=== PATIENT | male | born 1935 | race African-American/Black ===

== ENCOUNTER 2017-06-26 14:38 | Inpatient (IN) | payer MEDICARE ==
--- NOTE | 2017-06-26 15:26 | RAD ---
PORTABLE CHEST: Date: 06/26/17 PROVIDED CLINICAL HISTORY: Altered mental status. FINDINGS: Comparison with 07/13/14. Cardiac and mediastinal silhouette is within normal limits. Atherosclerosis involves the aortic arch. Conspicuous chronic obstructive changes are seen. Patchy opacity is present within the right lower l sheyla zone, which may reflect pneumonia. Gradient effect related to sparing of the lung bases with resp ect to the lung apices in terms of emphysematous change could also produce this appearance. No pleura l fluid or pneumothorax is apparent. IMPRESSION: Chronic obstructive change as described above with possible right basilar air space disease. Follow-u p should be considered. POS: MAHNAZ
[2017-06-26 15:31] LABS: #Lymphocytes 0.4 thou/uL (1.20-3.40); #Monocytes 0.4 thou/uL (0.11-0.59); #Neutrophils 2.2 thou/uL (1.40-6.50); %Basophils 0.7 % (0.0-1.0); %Eosinophils 1.5 % (0.0-10.0); %Lymphocytes 13.6 % (21.0-51.0); %Monocytes 11.9 % (0.0-10.0); %Neutrophils 72.2 % (42.0-75.0); Hemoglobin 12.6 g/dL (14.0-18.0); Mean Corpuscular HGB CONC 32.8 g/dL (32.0-36.0); Mean Corpuscular Hemoglobin 33.5 pg (27.0-31.0); Mean Platelet Volume 7.3 fL (7.4-10.4); Platelet Count 176 thou/uL (130-400); RBC Distribution Width 12.1 % (11.5-14.5); Red Blood Cell (RBC) Count 3.75 mill/uL (4.70-6.10); White Blood Cell (WBC) Count 3.1 thou/uL (4.8-10.8)
--- NOTE | 2017-06-26 15:33 | CT ---
CT BRAIN: Date: 06/26/17 PROVIDED CLINICAL HISTORY: Altered mental status. FINDINGS: The ventricular system appears normal in size and morphology. There is no evidence for intracranial h emorrhage or mass effect. Circumscribed near fluid density structure involving the left occipital sca lp/upper neck region posterior likely reflects sebaceous cyst. Extracranial soft tissues and osseous structures appear otherwise unremarkable. IMPRESSION: No evidence for intracranial hemorrhage or mass effect. POS: MAHNAZ
[2017-06-26 15:43] LABS: Anion Gap 12 mmol/L (10-20); BUN (Urea Nitrogen) 42 mg/dL (8.4-25.7); Calc. Creatinine Clearance 0 mL/min (70-130); Carbon Dioxide 28 mmol/L (23-31); Chloride 106 mmol/L (98-107); Estimated GFR-MDRD 16; Glucose 115 mg/dL (83-110); Potassium 4.5 mmol/L (3.5-5.1); Sodium 141 mmol/L (136-145)
[2017-06-26 15:55] LABS: CKMB 3.6 ng/mL (0-6.6); Troponin I 0.049 ng/mL (< 0.028)
[2017-06-26] MEDS ORDERED: Azithromycin 500 MG VIAL ONE (16:01)
[2017-06-26 16:13] LABS: Bilirubin Negative (Negative); Blood, Urine Negative (Negative); Clarity CLEAR (Clear); Glucose, Urine (Dipstick) Negative (Negative); Leukocyte Small (Negative); Nitrite Negative (Negative); Protein, Urine (Dipstick) 300 mg/dL (Neg-Trace); Specific Gravity, Urine 1.018 (1.002-1.036); Urobilinogen 0.2 mg/dL (0.2-1.0); pH, Urine 5.5 (5.0-9.0)
[2017-06-26 16:15] LABS: Bacteria/HPF None Seen HPF (None Seen); Hyaline Casts/LPF 0-3 HYALINE CAST LPF (0-3 Hyaline); Squamous Epithelial 0-3 HPF (0-3); WBC/HPF 21-50 HPF (0-3)
--- NOTE | 2017-06-26 18:31 | HP ---
DATE OF ADMISSION: 06/26/2017 CHIEF COMPLAINT: Shortness of breath. 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 The patient was in his usual state of health, living on his own taken care o f by his sisters who live close by. One of his sisters has tried to check on him this afternoon arou nd 1:00 and she found the patient was poorly responsive and was acutely short of breath, so she immed iately called the EMS and he was saturating on 82%. So, this patient was brought to the ER for furth er evaluation. When patient arrived in the ER, he remained very confused and unable to give much his tory. Most of the history is obtained from the patient's family at the bedside. The patient had no history of recent cough, but recently he has been having some hypoxia, so they went to their primary care physician's office, Dr. Hernandez who suggested the patient to be seen by Pulmonology in later time. The patient was also noted to have worsening fluid overload in his lower extremities. The patient was supposed to be seen by Cardiology also. The patient was seen today at the ER. He was drowsy and lethargic. Denies having any chest pain, no nausea, no vomiting, no diarrhea, no constipation. PAST MEDICAL HISTORY: 1. COPD. 2. Hypertension. 3. Coronary artery disease. 4. Chronic kidney disease stage 3. PAST SURGICAL HISTORY: Stent placed by Dr. Zeng 5 years ago. SOCIAL HISTORY: The patient is a nonsmoker. Smokes half pack a day. No history of alcohol, no hist ory of illicit drug use. FAMILY HISTORY: Significant for coronary artery disease in her father. Otherwise, it is noncontribu tory at this time for elderly age of patient. ALLERGIES: No known drug allergies. REVIEW OF SYSTEMS: All 12 systems are reviewed with the patient thoroughly and found to be negative at this time. The following complete review of systems was negative, unless otherwise mentioned in t he HPI or below: Constitutional: Weight loss or gain, sense of well-being, ability to conduct usual activities, exerc ise tolerance. Skin/Breast: Rash, itching, changes in hair growth or loss, nail changes, breast lumps, tenderness, swelling, nipple discharge. Eyes: Vision, double vision, tearing, blind spots, pain. ENT/Mouth: Headaches (location, time of onset, duration, precipitating factors), vertigo, lightheade dness, injury. Vision, double vision, tearing, blind spots, pain, nose bleeding, colds, obstruction, discharge, dental difficulties, gingival bleeding, dentures, neck stiffness, pain, tenderness, masses in thyroid or other areas Cardiovascular: Precordial pain, substernal distress, palpitations, syncope, dyspnea on exertion, or thopnea, nocturnal paroxysmal dyspnea, edema, cyanosis, hypertension, heart murmurs, varicosities, ph lebitis, claudication. Respiratory: Pain, shortness of breath, wheezing, stridor, cough, hemoptysis, fever or night sweats Gastrointestinal: Poor appetite, dysphagia, indigestion, abdominal pain, heartburn, eructation, naus ea, vomiting, hematemesis, jaundice, constipation, or diarrhea, abnormal stools (erick-colored, tarry, bloody, greasy, foul smelling), flatulence, hemorrhoids, recent changes in bowel habits. Genitourinary: Urgency, frequency, dysuria, nocturia, hematuria, polyuria, oliguria, unusual (or daniel nge in) color of urine, stones, hesitancy, change in size of stream, dribbling, acute retention or in continence, libido, potency. Musculoskeletal: Pain, swelling, redness or heat of muscles or joints, limitation, of motion, muscul ar weakness, atrophy, cramps. Neurologic/Psychiatric: Convulsions, paralyses, tremor, incoordination, paraesthesias, difficulties with memory of speech, sensory or motor disturbances, or muscular coordination (ataxia, tremor), emot ional problems, anxiety, depression, previous psychiatric care, unusual perceptions, hallucinations. Allergy/Immunologic: Skin rash, anemia, bleeding tendency, polydipsia, polyuria, intolerance to heat or cold. HOME MEDICATIONS: 1. Amlodipine 10 mg p.o. daily. 2. Aspirin 81 mg p.o. daily. 3. Plavix 75 mg p.o. daily. 4. Esomeprazole 40 mg p.o. daily. 5. Hydralazine 25 mg p.o. t.i.d. 6. Metoprolol 25 mg p.o. daily. 7. Prednisone 10 mg p.o. daily. PHYSICAL EXAMINATION: VITAL SIGNS: Blood pressure 190/88, heart rate is 80, saturation is 88% on 2 liters. GENERAL: The patient is moderately built and moderately nourished. He does not appears to be in acu te distress at this time. He is weak and lethargic. HEENT: Atraumatic, normocephalic. PERRLA. Extraocular muscles were intact. Oral mucosa is pink an d moist. CARDIOVASCULAR: S1, S2 normal. No murmurs, rubs or gallops. LUNGS: Bilateral air entry was equal. Crackles were noted in the lower bases, right lung showed mai dence of fine crackles on inspiration. ABDOMEN: Soft and nontender, no guarding, no rebound tenderness. Bowel sounds are normal. MUSCULOSKELETAL: Patient has pedal edema up to the knees. 2+ pedal edema more in ankles pitting typ e. No calf tenderness, no joint tenderness, no joint swelling. SKIN: No cyanosis. No erythema. Has a very dry skin with a flaky skin on the lower extremities. 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 No focal deficits were noted. PSYCHIATRIC: No signs of suicidal ideation. No signs of arely. No signs of agitation. LYMPHADENOPATHY: No evidence of any generalized lymph nodes noted. NECK: No thyromegaly. No JVD was noted. LABORATORY DATA: Sodium 141, potassium 4.5, chloride 106, bicarbonate 28, BUN 42, creatinine 4.33, b lood sugar 115, troponin 0.049. BNP is 927. ASSESSMENT AND PLAN: 1. Acute hypoxic respiratory failure. 2. Acute right lung pneumonia. 3. Acute kidney injury on chronic kidney disease. 4. Joe-VC-iesepfhpw myocardial infarction. 5. Possible congestive heart failure, likely right heart failure. 6. Acute urinary tract infection. 7. History of coronary artery disease status post stents. 8. Uncontrolled hypertension. 9. Acute encephalopathy. PLAN: 1. Plan is to continue the patient on the oxygen at this time and we will start the patient on IV an tibiotics with Rocephin and azithromycin to cover community-acquired pneumonia. Patient has right rosalina ng infiltrate, likely it looks like aspiration type, but patient does not have any cough or any high grade fevers at this time. We will do the speech evaluation and continue with DuoNebs and albuterol neb treatments. Plan to consult Dr. Phelps who the patient sees. Patient does not have any acute res piratory distress at this time. 2. Patient has evidence of worsening renal functions. Creatinine is 4.3. Baseline creatinine is no t known at this time. Plan to consult Dr. Khan for further evaluation of his renal functions. I will continue the patient on fluids at 50 mL an hour because the patient has elevated BNP with a history of CHF and we will also do 2D echo to look for any evidence of wall motion abnormality. 3. The patient has elevated troponins. We will continue the patient on aspirin and beta yevgeniy and we will closely monitor with echo and we will consult Cardiology. 4. Patient has evidence of urinary tract infection which could be contributing to his encephalopathy , up on antibiotics and should cover most of the antibiotics. We will wait for the urine cultures. 5. Patient has poorly controlled blood pressures. We will restart his home medications and optimize his blood pressure medications to keep the blood pressures less than 130/80. 6. DVT prophylaxis, Lovenox 30 mg subcutaneously daily, renally dosed. I spent 75 minutes with this patient. Of this, one hour is critical care time.
[2017-06-26] MEDS ORDERED: Ondansetron ODT 4 MG TAB PO PRN (21:21)
[2017-06-26] MEDS ORDERED: Albuterol Sulfate 2.5 mg/3 ml Neb NEB PRN (21:21)
[2017-06-26] MEDS ORDERED: Ondansetron HCl/PF 4 MG/2 ML Vial IVP PRN (21:21)
[2017-06-26] MEDS ORDERED: Guaifenesin DM 100-10/5 ML UDCUP PO PRN (21:21)
[2017-06-26] MEDS ORDERED: HYDROcodone/Acetaminophen 5/325 mg Tablet PO PRN (21:21)
[2017-06-26] MEDS: hydrALAZINE 25 MG TAB PO SCH (21:27)
[2017-06-26] MEDS ORDERED: Amlodipine 10 MG TAB PO SCH (21:30)
[2017-06-26] MEDS ORDERED: Famotidine/PF 20 mg/2ml Vial SLOW IVP SCH (21:45)
[2017-06-26] MEDS ORDERED: Famotidine 40 MG/4 ML VIAL SLOW IVP SCH (21:45)
[2017-06-26] MEDS ORDERED: Docusate 100 MG CAP PO SCH (21:45)
[2017-06-26] MEDS: Sodium Chloride 0.9% 1,000 ML IV SCH (21:58)
[2017-06-26 22:36] VITALS: BMI 18.4
[2017-06-26] MEDS ORDERED: cloNIDine 0.1 MG TAB PO SCH (23:30)
[2017-06-27 05:42] LABS: #Lymphocytes 0.4 thou/uL (1.20-3.40); #Monocytes 0.4 thou/uL (0.11-0.59); #Neutrophils 2.2 thou/uL (1.40-6.50); %Basophils 0.8 % (0.0-1.0); %Eosinophils 1.1 % (0.0-10.0); %Lymphocytes 14.6 % (21.0-51.0); %Monocytes 11.5 % (0.0-10.0); Hemoglobin 11.7 g/dL (14.0-18.0); Mean Corpuscular HGB CONC 32.5 g/dL (32.0-36.0); Mean Corpuscular Hemoglobin 32.6 pg (27.0-31.0); Mean Platelet Volume 7.4 fL (7.4-10.4); Platelet Count 175 thou/uL (130-400)
[2017-06-27 05:56] LABS: Anion Gap 9 mmol/L (10-20); BUN (Urea Nitrogen) 41 mg/dL (8.4-25.7); Calc. Creatinine Clearance 14 mL/min (70-130); Calcium 8.9 mg/dL (7.8-10.44); Carbon Dioxide 29 mmol/L (23-31); Chloride 105 mmol/L (98-107); Estimated GFR-MDRD 18; Glucose 82 mg/dL (83-110); Sodium 139 mmol/L (136-145)
[2017-06-27] MEDS ORDERED: Clopidogrel Bisulfate 75 MG TAB PO SCH (09:00)
[2017-06-27] MEDS ORDERED: FLU VACC TS2017-18 (>65YR) 0.5 ML SYRINGE IM ONE (09:00)
[2017-06-27] MEDS ORDERED: Prevnar 13-Val Conj/PF 0.5 ML SYRINGE IM ONE (09:00)
[2017-06-27] MEDS ORDERED: Enoxaparin Sodium 30 MG/0.3 ML SYRINGE SC SCH (09:00)
[2017-06-27] MEDS: Aspirin 81 mg Enteric Coated Tablet PO SCH (10:44)
[2017-06-27] MEDS: Amlodipine 10 MG TAB PO SCH (10:44)
[2017-06-27] MEDS: predniSONE 20 MG TAB PO SCH (10:45)
[2017-06-27] MEDS: Docusate 100 MG CAP PO SCH ×2 (10:45→20:55)
[2017-06-27] MEDS: hydrALAZINE 25 MG TAB PO SCH ×3 (10:45→20:56)
--- NOTE | 2017-06-27 14:17 | PDOC.PN ---
- Subjective Encounter Start Date: 06/27/17 Encounter Start Time: 13:00 Subjective: pt up in bed feels much better today - Objective Resuscitation Status: Resuscitation Status FULL:Full Resuscitation Vital Signs & Weight: Vital Signs (12 hours) Temp Pulse Resp BP Pulse Ox 06/27/17 12:45 98.4 F 74 16 181/76 H 96 06/27/17 10:50 73 18 94 L 06/27/17 08:00 98.5 F 73 18 88 L 06/27/17 07:46 72 18 92 L 06/27/17 07:19 98.5 F 71 24 H 163/87 H 94 L 06/27/17 03:49 98.8 F 80 87 H 177/86 H 96 06/27/17 02:31 67 18 93 L Weight Admit Weight 139 lb 15.888 oz Weight 139 lb 15.888 oz I&O: 06/26/17 06/27/17 06/28/17 06:59 06:59 06:59 Intake Total 1270 Balance 1270 Result Diagrams: 06/27/17 05:16 06/27/17 05:16 Phys Exam - Physical Examination HEENT: PERRLA, moist MMs Neck: no nodes, no JVD Respiratory: wheezing present diminished breath sounds Cardiovascular: RRR, no significant murmur Gastrointestinal: soft, non-tender Dx/Plan - Plan * . 1) acute hypoxic resp failure 2) copd 3) diastolic chf 4) ckd stage 4 plan: pna vs copd exab, influenza negative, pt uses home oxygen at night and sometimes during the day. continue duonebs will also continue steroids. continue abx. swallow eval done, recommended mechanical soft with thin liquids no straw. continue home bp meds, bp still not controlled. creatinine is stable, pt has multiple medical problems will consult palliative. Review of Systems - Review of Systems ENT: negative: Ear Pain, Ear Discharge, Nose Pain, Nose Discharge, Nose Congestion, Mouth Pain, Mouth Swelling, Throat Pain, Throat Swelling, Other Respiratory: negative: Cough, Dry, Shortness of Breath, Hemoptysis, SOB with Excertion, Pleuritic Pain, Sputum, Wheezing Cardiovascular: negative: chest pain, palpitations, orthopnea, paroxysmal nocturnal dyspnea, edema, light headedness, other Gastrointestinal: negative: Nausea, Vomiting, Abdominal Pain, Diarrhea, Constipation, Melena, Hematochezia, Other Genitourinary: negative: Dysuria, Frequency, Incontinence, Hematuria, Retention , Other - Medications/Allergies Allergies/Adverse Reactions: Allergies Allergy/AdvReac Type Severity Reaction Status Date / Time No Known Allergies Allergy Unverified 07/07/14 14:00 Medications: Current Medications Acetaminophen (Tylenol) 650 mg PO Q4H PRN PRN Reason: Headache/Fever or Pain Hydrocodone Bitart/Acetaminophen ([place] 5/325) 1 tab PO Q4H PRN PRN Reason: Moderate Pain (4-6) Albuterol Sulfate (Ventolin) 2.5 mg NEB Q2H PRN PRN Reason: Wheezing Albuterol/Ipratropium (Duoneb) 3 ml NEB [id number] [facility] Last Admin: 06/27/17 10:50 Dose: 3 ml Amlodipine Besylate (Norvasc) 10 mg PO DAILY [facility] Last Admin: 06/27/17 10:44 Dose: 10 mg Aspirin (Ecotrin) 81 mg PO DAILY [facility] Last Admin: 06/27/17 10:44 Dose: 81 mg Clopidogrel Bisulfate (Plavix) 75 mg PO DAILY [facility] Last Admin: 06/27/17 10:45 Dose: 75 mg Docusate Sodium (Colace) 100 mg PO BID [facility] Last Admin: 06/27/17 10:45 Dose: 100 mg Famotidine (Pepcid) 20 mg SLOW IVP QPM [facility] Guaifenesin/Dextromethorphan (Robitussin Dm) 15 ml PO Q4H PRN PRN Reason: Cough Heparin Sodium (Porcine) (Heparin) 5,000 units SC TID [facility] Hydralazine HCl (Apresoline) 25 mg PO TID [facility] Last Admin: 06/27/17 10:45 Dose: 25 mg Hydralazine HCl (Apresoline) 10 mg SLOW IVP Q6H PRN PRN Reason: SBP > 180 Azithromycin 500 mg/ Sodium (Chloride) 250 mls @ 250 mls/hr IVPB Q24HR [facility] Ceftriaxone Sodium 1 gm/ (Sterile Water) 10 mls @ 120 mls/hr SLOW IVP Q24HR [facility] Sodium Chloride (Normal Saline 0.9%) 1,000 mls @ 50 mls/hr IV .Q20H [facility] Last Admin: 06/26/17 21:58 Dose: 1,000 mls Metoprolol Succinate (Toprol Xl) 25 mg PO DAILY [facility] Last Admin: 06/27/17 10:45 Dose: 25 mg Ondansetron HCl (Zofran Odt) 4 mg PO Q6H PRN PRN Reason: Nausea/Vomiting Ondansetron HCl (Zofran) 4 mg IVP Q6H PRN PRN Reason: Nausea/Vomiting Prednisone (Prednisone) 10 mg PO QAM-WM [facility] Last Admin: 06/27/17 10:45 Dose: 10 mg Sodium Chloride (Flush - Normal Saline) 10 ml IVF Q12HR [facility] Sodium Chloride (Flush - Normal Saline) 10 ml IVF PRN PRN PRN Reason: Saline Flush
[2017-06-27] MEDS: Heparin 5,000 UNITS/ML VIAL SC SCH ×3 (14:49→20:55)
[2017-06-27] MEDS: cefTRIAXone\\ROCEPHIN 1 GM in Sterile Water 10 ML SLOW IVP SCH (16:24)
[2017-06-27] MEDS: Azithromycin 500 MG in Sodium Chloride 0.9% 250 ML 250 ML IVPB SCH (16:24)
[2017-06-27] MEDS: Sodium Chloride 0.9% 1,000 ML IV SCH ×2 (16:30→20:52)
--- NOTE | 2017-06-27 20:34 | CON ---
DATE OF CONSULTATION: 06/27/2017 CARDIOLOGY CONSULTATION PRIMARY LEAD ASSISTANT MANAGER: Alf Zeng M.D. REASON FOR CONSULTATION: Shortness of breath, coronary artery disease. HISTORY OF PRESENT ILLNESS: Mr. Fabio De La Rosa is a delightful 81-year-old gentleman, who was brought to the hospital yesterday evening noticing having decreased responsiveness and appear short of breath and EMS was called. Saturation was 82%. He was brought to the emergency room. The patient was booker wsy and lethargic, also had renal failure. He has been received some fluid. He is more awake and al ert now. PAST MEDICAL HISTORY: COPD, hypertension, coronary artery disease with previous stent implantation i n the left anterior descending artery [place] [address] Zeng. PAST SURGICAL HISTORY: Previous stent implantation. SOCIAL HISTORY: It is listed in the chart he smokes half pack of cigarettes a day. FAMILY HISTORY: Significant for coronary artery disease in the father. ALLERGIES: None known. REVIEW OF SYSTEMS: Not very accurate as the patient really cannot answer the questions adequately. He is having no chest pain, pressure, heaviness or squeezing. He is not short of breath now. MEDICATIONS: Prior to admission at home: 1. Metoprolol 25 mg daily. 2. Iron. 3. Atorvastatin. 4. Aspirin. 5. Amlodipine. 6. Hydralazine. 7. Plavix. 8. Tramadol. PHYSICAL EXAMINATION: GENERAL: An underweight appearing elderly gentleman, looks very frail, 6 feet tall and 139 pounds. VITAL SIGNS: Blood pressure 148/79, pulse 90. HEENT: Eyes: Sclerae nonicteric. Mouth: Mucous membranes are moist. NECK: Supple, no lymphadenopathy. CARDIAC: Normal S1, normal S2. I do not hear murmur, rub or gallop. ABDOMEN: Soft, nontender, no hepatosplenomegaly. EXTREMITIES: Warm, dry, no clubbing or cyanosis. There is no edema. SKIN: The skin; however, is peeling and he does look dry. LABORATORY AND X-RAY FINDINGS: EKG: Sinus rhythm, left ventricular hypertrophy with repolarization changes, premature atrial contractions. There is a lot of baseline artifact on the EKGs. The comput er read this is atrial fibrillation, but clearly some of it is sinus rhythm with a lot of baseline ar tifact. Echocardiogram showed severe left ventricular hypertrophy, normal left ventricular ejection fraction, ejection fraction 60% to 65%, evidence of diastolic dysfunction, and severely elevated pulm onary artery pressure at 74 mmHg systolic. There is a moderate pericardial effusion, but no tamponad e. ASSESSMENT: 1. Congestive heart failure, diastolic. 2. Renal failure, now with a creatinine of 3.8, which is better than the initial of 4.3. 3. History of coronary artery disease. PLAN: 1. Recheck base met in the morning. 2. We will increase fluid intravenously for now. 3. We will stop Plavix. At this point, he is 12 years out from stent implantation. 4. Repeat EKG tomorrow. We may need to consider moving to telemetry if it is unclear whether he is having fibrillation.
[2017-06-27] MEDS: Famotidine 40 MG/4 ML VIAL SLOW IVP SCH (20:55)
[2017-06-27] MEDS: Atorvastatin Calcium 20 MG TAB PO SCH (20:55)
[2017-06-27] MEDS: Acetaminophen 325 MG TAB PO PRN (20:56)
--- NOTE | 2017-06-27 21:21 | CON ---
DATE OF SERVICE: 06/27/2017 RENAL MEDICINE HISTORY OF PRESENT ILLNESS: Mr. De La Rosa is an 81-year-old black male with known history of chronic narinder al failure from hypertensive nephropathy and was admitted for shortness of breath. He initially pres ented with some mental status change. The ER was noted to be saturating at 82%. It was felt that th e hypoxemia may be contributing to his mental status change. We are now being consulted for his acut e kidney injury on top of his chronic renal failure. The last time I saw this patient was back in [facility] and at that time his creatinine was about 4.28 mg percent. He was taking NSAIDs at that time a nd he was advised to discontinue all NSAIDs. This morning, the patient is slightly improved with reg ards to his mentation. He is still somewhat lethargic. We are here for further elevation of this renal dysfunction. Recent workup shows that he has a normal ejection fraction, but does have evidence of restrictive hea rt. He has a thickened heart mass. Chest x-ray is not suggestive of overt CHF. REVIEW OF SYSTEMS: Positive for confusion. Positive for chronic shortness of breath, no nausea, no vomiting. Decreased appetite, decreased energy level, no syncopal episode, no productive cough, no f ever or chills. No abdominal pain. No hematochezia, no melena, no hematemesis, no diplopia, no sore throat, no gross hematuria, no dysuria, no urinary frequency. MEDICATIONS: [place] 5/325 q.4h, DuoNeb q.4 hours, Norvasc 10 mg daily, Ecotrin 81 mg daily, Lipitor 2 0 mg at bedtime, azithromycin 250 mg every day, ceftriaxone 1 gram daily, Colace 100 mg p.o. b.i.d., Pepcid 20 mg IV daily, heparin 5000 units subcu t.i.d., metoprolol succinate 25 mg every day, prednis one 10 mg q.a.m., normal saline running at 80 mL per hour. PAST MEDICAL HISTORY: 1. COPD. 2. Longstanding hypertension. 3. Chronic renal failure secondary to a presumed hypertensive nephropathy. 4. History of restrictive lung disease. 5. Coronary artery disease. 6. BPH. 7. Hyperlipidemia. 8. Status post pneumonia. PAST SURGICAL HISTORY: 1. Status post colonoscopy. 2. Status post cardiac catheterization. 3. Status post coronary stent placement. SOCIAL HISTORY: Patient is single, no children, lives in [place]. Smoked for 60 years, one pack a day , currently minimal cigarette, alcohol none. No IV drug abuse. He lives alone. Education 7th grade . 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 No blood transfusion. FAMILY HISTORY: Positive family history of ESRD. ALLERGIES: None. TRAUMA: None. IMMUNIZATIONS: Not up to date. HOSPITALIZATIONS: Please see past medical history. PHYSICAL EXAMINATION: VITAL SIGNS: Blood pressure is 148/79, heart rate 90, respiratory rate 16, temperature 97.3 points, pulse ox 92%. GENERAL: He is awake, but not alert, lethargic, drowsy, somewhat somnolent, not in distress. SKIN: Decreased turgor. HEENT: Pinkish conjunctivae, anicteric sclerae. NECK: No neck mass, no carotid bruits, no JVD. CHEST: No deformities. LUNGS: Decreased breath sounds. HEART: Normal sinus rhythm. No murmur, no gallops or rubs. ABDOMEN: Globular, soft, nontender. EXTREMITIES: No edema, no deformities. LABORATORY DATA: Of 06/27/2017, white count 3, hemoglobin 11.7, sodium 139, potassium 4, chloride 10 5, carbon dioxide 29, BUN 41, creatinine 3.85. On 06/26/2017, BUN is 42, creatinine 4.33, calcium is noted at 8.9. On 08/27/2016, creatinine 3.52. Chest x-ray of 06/26/2017 shows COPD changes with a possible right basilar infiltrate, ? pneumonia. Cardiac echo, normal EF, normal ejection fraction of 60%-65%. There is severe concentric left ventri cular hypertrophy. ASSESSMENT AND PLAN: 1. Acute kidney injury on top of her chronic renal failure, consider a superimposed prerenal azotemi a. Agree with gentle volume repletion. There is already a slight improvement with the renal functio n with gentle volume repletion. I will continue current IV fluid as is. There is no indication for any dialytic intervention with this patient. 2. Shortness of breath, multifactorial. Consider chronic obstructive pulmonary disease exacerbation versus pneumonia. He is empirically being treated with steroids and IV antibiotics. Overall, agree with current management. Recheck base met and CBC in a.m.
[2017-06-28] MEDS: hydrALAZINE 20 MG/ML VIAL SLOW IVP PRN (03:59)
[2017-06-28] MEDS: Sodium Chloride 0.9% 1,000 ML IV SCH (04:01)
[2017-06-28] MEDS ORDERED: hydrALAZINE 25 MG TAB PO SCH (06:30)
[2017-06-28] MEDS: predniSONE 20 MG TAB PO SCH (07:56)
[2017-06-28] MEDS: Amlodipine 10 MG TAB PO SCH (07:57)
[2017-06-28] MEDS: Docusate 100 MG CAP PO SCH ×2 (07:57→21:26)
[2017-06-28] MEDS: Aspirin 81 mg Enteric Coated Tablet PO SCH (07:59)
[2017-06-28] MEDS: Heparin 5,000 UNITS/ML VIAL SC SCH ×3 (07:59→21:26)
[2017-06-28] MEDS ORDERED: Atorvastatin Calcium 20 MG TAB PO SCH (09:00)
[2017-06-28] MEDS ORDERED: Amlodipine 5 MG TAB PO SCH (09:00)
[2017-06-28] MEDS ORDERED: Clopidogrel Bisulfate 75 MG TAB PO SCH (09:00)
--- NOTE | 2017-06-28 09:36 | PQF ---
CLINICAL DOCUMENTATION IMPROVEMENT CLARIFICATION FORM: ICD-10 Updated PLEASE DO AN ADDENDUM TO THE PROGRESS NOTE WITH ANY DOCUMENTATION UPDATES OR ADDITIONS AND CARRY THROUGH TO DC SUMMARY. THANK YOU. DATE: 06/28 ATTN: DR. Isrrael MONTGOMERY Please exercise your independent, professional judgment in responding to the clarification form. Clinical indicators are provided on the bottom of this form for your review. Please check appropriate box(s): DIASTOLIC HEART FAILURE: ACUITY [ ] Acute [x ] Acute on Chronic [ ] Chronic [ ] Other diagnosis [ ] Unable to determine For continuity of documentation, please document condition throughout progress notes and discharge summary. Thank You. CLINICAL INDICATORS - SIGNS / SYMPTOMS / LABS BNP: 927 PHYSICIAN H&P DOCUMENTATION 06/26: ASSESSMENT & PLAN: 5) POSSIBLE CHF, LIKELY RIGHT HEART FAILURE ATTENDING PN 06/27: DX/PLAN: 3) DIASTOLIC CHF CARDIOLOGY CONSULT DOCUMENTATION 06/27: ASSESSMENT: 1) CHF, DIASTOLIC RISKS: HX DIASTOLIC CHF CKD STAGE 3 CAD POORLY CONTROLLED HTN TREATMENTS: ECHO CARDIOLOGY CONSULT THANK YOU! Jennifer (This form is maintained as a part of the permanent medical record) 2015 [employer]. All Rights Reserved [employer]
--- NOTE | 2017-06-28 09:48 | PQF ---
CLINICAL DOCUMENTATION IMPROVEMENT CLARIFICATION FORM: ICD-10 Updated PLEASE DO AN ADDENDUM TO THE PROGRESS NOTE WITH ANY DOCUMENTATION UPDATES OR ADDITIONS AND CARRY THROUGH TO DC SUMMARY. THANK YOU. DATE: 06/28 ATTN: DR. KALINA MONTGOMERY Please exercise your independent, professional judgment in responding to the clarification form. Clinical indicators are provided on the bottom of this form for your review. Please check appropriate box(s): [ x] Aspiration Pneumonia ( possible) [ ] Pneumonia secondary to (specify organism / underlying disease) [ ] Simple Pneumonia (community acquired - nosocomial) [ ] Bronchopneumonia [ ] Pneumonia of unknown etiology [ ] Other diagnosis [ ] Unable to determine For continuity of documentation, please document condition throughout progress notes and discharge summary. Thank You. CLINICAL INDICATORS - SIGNS / SYMPTOMS / LABS PHYSICIAN H&P DOCUMENTATION 06/26: ASSESSMENT/PLAN: 2) ACUTE RIGHT LUNG PNEUMONIA. PLAN: 1) ...WE WILL START PATIENT ON IV ANTIBIOTICS W/ROCEPHIN & AZITHROMYCIN TO COVER COMMUNITY ACQUIRED PNEUMONIA. PT HAS R LUNG INFILTRATE, LIKELY IT LOOKS LIKE ASPIRATION TYPE... ATTENDING PN 06/27: DX/PLAN: PNA VS COPD EXAC, ...CONTINUE ABX, SWALLOW EVAL DONE, RECOMMENDED MECHANICAL SOFT WITH THIN LIQUIDS, NO STRAW CXR 06/26: ...PATCHY OPACITY IS PRESENT WITHIN THE RIGHT LOWER LUNG ZONE, WHICH MAY REFLECT PNEUMONIA RISK FACTORS: CURRENT TOBACCO ABUSE ADVANCED AGE COPD TREATMENTS: IV ANTIBIOTICS (ROCEPHIN & AZITHROMYCIN 06/26 - PRESENT) SUPPLEMENTAL OXYGEN RESPIRATORY TREATMENTS (DUONEB 06/26 - PRESENT) THANK YOU! Jennifer (This form is maintained as a part of the permanent medical record) 2014 [email or web address]. All Rights Reserved [facility]
--- NOTE | 2017-06-28 09:56 | PQF ---
CLINICAL DOCUMENTATION IMPROVEMENT CLARIFICATION FORM: ICD-10 Updated PLEASE DO AN ADDENDUM TO THE PROGRESS NOTE WITH ANY DOCUMENTATION UPDATES OR ADDITIONS AND CARRY THROUGH TO DC SUMMARY. THANK YOU. DATE: 06/28 ATTN: DR. KALINA MONTGOMERY Please exercise your independent, professional judgment in responding to the clarification form. Clinical indicators are provided on the bottom of this form for your review. Please check appropriate box(s) to clarify if the following diagnosis has been ruled in or ruled out: NSTEMI [ ] Ruled in diagnosis [ ] Continue to treat [ ] Resolved [ ] Ruled out diagnosis [ ] Other diagnosis [x ] Unable to determine For continuity of documentation, please document condition throughout progress notes and discharge summary. Thank You. CLINICAL INDICATORS - SIGNS / SYMPTOMS / LABS TROP: 0.049 (06/26) PHYSICIAN H&P DOCUMENTATION 06/26: ASSESSMENT & PLAN: 4) [id number] MYOCARDIAL INFARCTION NO FURTHER MENTION OF NSTEMI RISK FACTORS: CAD CURRENT TOBACCO ABUSE DIASTOLIC CHF TREATMENT: 1 SET OF CARDIAC ENZYMES THANK YOU! Jennifer (This form is maintained as a part of the permanent medical record) 2014 [employer] All Rights Reserved Jennifer Oakes RN, BSN [email or web address] Office: [phone] [id number]
[2017-06-28] MEDS: hydrALAZINE 25 MG TAB PO SCH ×3 (14:13→21:26)
[2017-06-28] MEDS: cefTRIAXone\\ROCEPHIN 1 GM in Sterile Water 10 ML SLOW IVP SCH (15:49)
[2017-06-28] MEDS: Azithromycin 500 MG in Sodium Chloride 0.9% 250 ML 250 ML IVPB SCH (16:52)
--- NOTE | 2017-06-28 18:08 | PRG ---
DATE OF SERVICE: 06/28/2017 HISTORY: Mr. De La Rosa is resting comfortably, no complaints. No chest pain or pressure. PHYSICAL EXAMINATION: VITAL SIGNS: Blood pressure 167/76, pulse 87 and regular. LUNGS: Clear. CARDIAC: Normal S1, normal S2. ASSESSMENT: 1. Coronary artery disease, stable. 2. Pulmonary hypertension. 3. Diastolic heart failure, still somewhat volume depleted, I suspect. 4. Renal function improving, creatinine went from 4.3-3.8. PLAN: 1. Continue antibiotics and gentle hydration. 2. Continue amlodipine. 3. I will be out the next few days. The patient's primary labor utilization superintendent is Dr. Zeng, one of the partners will be covering the next few days.
--- NOTE | 2017-06-28 21:15 | PDOC.PN ---
- Subjective Encounter Start Date: 06/28/17 Encounter Start Time: 09:00 Subjective: pt up in bed no complains - Objective Resuscitation Status: Resuscitation Status FULL:Full Resuscitation Vital Signs & Weight: Vital Signs (12 hours) Temp Pulse Resp BP Pulse Ox 06/28/17 18:42 84 16 94 L 06/28/17 16:54 87 06/28/17 15:46 97.6 F 87 18 167/76 H 92 L 06/28/17 14:13 80 06/28/17 11:32 97.6 F 80 18 178/72 H 89 L Weight Admit Weight 139 lb 15.888 oz Weight 139 lb 15.888 oz I&O: 06/27/17 06/28/17 06/29/17 06:59 06:59 06:59 Intake Total 1270 1200 1312 Output Total 400 750 Balance 1270 800 562 Result Diagrams: 06/29/17 05:19 06/29/17 05:19 Phys Exam - Physical Examination HEENT: PERRLA Neck: no nodes mild rales to bases Gastrointestinal: soft, non-tender Musculoskeletal: no edema Dx/Plan - Plan 1) acute hypoxic resp failure 2) copd 3) diastolic chf 4) ckd stage 4 plan: pna vs copd exab v influenza negative, pt uses home oxygen at night and sometimes during the day. continue duonebs will also continue steroids. continue abx. swallow eval done, recommended mechanical soft with thin liquids no straw. pt has diastolic heart failure and severe pulmonary htn. continue home bp meds, bp still not controlled. creatinine is stable, pt has multiple medical problems will consult palliative. will ask PT to ambulate pt. will be talking with family about pt's code status and possible placement. Review of Systems - Review of Systems ENT: negative: Ear Pain, Ear Discharge, Nose Pain, Nose Discharge, Nose Congestion, Mouth Pain, Mouth Swelling, Throat Pain, Throat Swelling, Other Respiratory: negative: Cough, Dry, Shortness of Breath, Hemoptysis, SOB with Excertion, Pleuritic Pain, Sputum, Wheezing Cardiovascular: negative: chest pain, palpitations, orthopnea, paroxysmal nocturnal dyspnea, edema, light headedness, other - Medications/Allergies Allergies/Adverse Reactions: Allergies Allergy/AdvReac Type Severity Reaction Status Date / Time No Known Allergies Allergy Unverified 07/07/14 14:00 Medications: Current Medications Acetaminophen (Tylenol) 650 mg PO Q4H PRN PRN Reason: Headache/Fever or Pain Last Admin: 06/27/17 20:56 Dose: 650 mg Hydrocodone Bitart/Acetaminophen ([place] 5/325) 1 tab PO Q4H PRN PRN Reason: Moderate Pain (4-6) Albuterol Sulfate (Ventolin) 2.5 mg NEB Q2H PRN PRN Reason: Wheezing Albuterol/Ipratropium (Duoneb) 3 ml NEB Q2GM-MG [facility] Last Admin: 06/29/17 19:14 Dose: 3 ml Aspirin (Ecotrin) 81 mg PO DAILY [facility] Last Admin: 06/29/17 09:14 Dose: 81 mg Atorvastatin Calcium (Lipitor) 20 mg PO HS [facility] Last Admin: 06/29/17 21:14 Dose: 20 mg Docusate Sodium (Colace) 100 mg PO BID [facility] Last Admin: 06/29/17 21:14 Dose: 100 mg Famotidine (Pepcid) 20 mg SLOW IVP QPM [facility] Last Admin: 06/29/17 21:15 Dose: 20 mg Guaifenesin/Dextromethorphan (Robitussin Dm) 15 ml PO Q4H PRN PRN Reason: Cough Heparin Sodium (Porcine) (Heparin) 5,000 units SC TID [facility] Last Admin: 06/29/17 21:15 Dose: 5,000 units Hydralazine HCl (Apresoline) 10 mg SLOW IVP Q6H PRN PRN Reason: SBP > 180 Last Admin: 06/29/17 03:23 Dose: 10 mg Hydralazine HCl (Apresoline) 75 mg PO TID [facility] Last Admin: 06/29/17 21:15 Dose: 75 mg Azithromycin 500 mg/ Sodium (Chloride) 250 mls @ 250 mls/hr IVPB Q24HR [facility] Last Admin: 06/29/17 17:52 Dose: 250 mls Ceftriaxone Sodium 1 gm/ (Sterile Water) 10 mls @ 120 mls/hr SLOW IVP Q24HR [facility] Last Admin: 06/29/17 16:11 Dose: 10 mls Metoprolol Tartrate (Lopressor) 100 mg PO BID [facility] Last Admin: 06/29/17 21:15 Dose: 100 mg Nifedipine (Adalat) 10 mg PO TID [facility] Last Admin: 06/29/17 21:15 Dose: 10 mg Ondansetron HCl (Zofran Odt) 4 mg PO Q6H PRN PRN Reason: Nausea/Vomiting Ondansetron HCl (Zofran) 4 mg IVP Q6H PRN PRN Reason: Nausea/Vomiting Prednisone (Prednisone) 10 mg PO QAM[facility] Last Admin: 06/29/17 09:13 Dose: 10 mg Sodium Chloride (Flush - Normal Saline) 10 ml IVF Q12HR [facility] Last Admin: 06/29/17 21:16 Dose: 10 ml Sodium Chloride (Flush - Normal Saline) 10 ml IVF PRN PRN PRN Reason: Saline Flush
[2017-06-28] MEDS: Atorvastatin Calcium 20 MG TAB PO SCH (21:26)
[2017-06-28] MEDS: Metoprolol Tartrate 50 MG TAB PO SCH (21:26)
[2017-06-28] MEDS: Famotidine 40 MG/4 ML VIAL SLOW IVP SCH (21:27)
[2017-06-29] MEDS: hydrALAZINE 20 MG/ML VIAL SLOW IVP PRN (03:23)
[2017-06-29 06:13] LABS: Hemoglobin 11.2 g/dL (14.0-18.0); Lymphocytes 18 % (21-51); MDiff Complete? YES; Mean Corpuscular Hemoglobin 33.3 pg (27.0-31.0); Mean Platelet Volume 7.8 fL (7.4-10.4); Monocytes 13 % (0-10); Neutrophil 69 % (42-75); PLT Morphology Comment Appears Adequate; Platelet Count 184 thou/uL (130-400); RBC Distribution Width 12.2 % (11.5-14.5); Red Blood Cell (RBC) Count 3.37 mill/uL (4.70-6.10); White Blood Cell (WBC) Count 2.3 thou/uL (4.8-10.8)
[2017-06-29 06:19] LABS: Anion Gap 10 mmol/L (10-20); BUN (Urea Nitrogen) 35 mg/dL (8.4-25.7); Calc. Creatinine Clearance 15 mL/min (70-130); Carbon Dioxide 25 mmol/L (23-31); Chloride 108 mmol/L (98-107); Estimated GFR-MDRD 20; Glucose 73 mg/dL (83-110); Potassium 4.3 mmol/L (3.5-5.1); Sodium 139 mmol/L (136-145)
[2017-06-29] MEDS: predniSONE 20 MG TAB PO SCH (09:13)
[2017-06-29] MEDS: Docusate 100 MG CAP PO SCH ×2 (09:13→21:14)
[2017-06-29] MEDS: hydrALAZINE 25 MG TAB PO SCH ×3 (09:13→21:15)
[2017-06-29] MEDS: Amlodipine 10 MG TAB PO SCH (09:13)
[2017-06-29] MEDS: Heparin 5,000 UNITS/ML VIAL SC SCH ×3 (09:14→21:15)
[2017-06-29] MEDS: Aspirin 81 mg Enteric Coated Tablet PO SCH (09:14)
[2017-06-29] MEDS: Metoprolol Tartrate 50 MG TAB PO SCH (09:28)
--- NOTE | 2017-06-29 10:55 | PDOC.PN ---
- Subjective Encounter Start Date: 06/29/17 Encounter Start Time: 11:03 Subjective: pt up in bed no complains -: family at bedside updated and spoke about code status - Objective Resuscitation Status: Resuscitation Status FULL:Full Resuscitation Vital Signs & Weight: Vital Signs (12 hours) Temp Pulse Resp BP BP Pulse Ox 06/29/17 09:13 76 06/29/17 07:59 97.6 F 76 16 181/75 H 93 L 06/29/17 06:36 88 L 06/29/17 06:33 81 20 88 L 06/29/17 03:30 98.1 F 71 18 185/70 H 98 06/29/17 03:23 71 185/70 H 06/29/17 02:53 74 16 95 06/28/17 23:49 98.1 F 69 16 179/77 H 96 Weight Admit Weight 139 lb 15.888 oz Weight 139 lb 15.888 oz I&O: 06/28/17 06/29/17 06/30/17 06:59 06:59 06:59 Intake Total 1200 1552 Output Total 400 1350 Balance 800 202 Result Diagrams: 06/29/17 05:19 06/29/17 05:19 Phys Exam - Physical Examination HEENT: PERRLA, moist MMs Neck: no nodes, no JVD Respiratory: no wheezing, no rales Cardiovascular: RRR, no significant murmur Gastrointestinal: soft, non-tender Musculoskeletal: no edema Dx/Plan - Plan * . 1) acute hypoxic resp failure 2) copd 3) diastolic chf 4) ckd stage 4 plan: pna vs copd exab v influenza negative, pt uses home oxygen at night and sometimes during the day. continue duonebs will also continue steroids. continue abx. swallow eval done, recommended mechanical soft with thin liquids no straw. pt has diastolic heart failure and severe pulmonary htn. continue home bp meds, bp still not controlled. creatinine is stable, pt has multiple medical problems will consult palliative. 06/29 discussed with pt's family about pt's overall medical issues. They will talk with him about code status but pt did say he wants to do what it takes to live. However pt's sister knows his overall medical problems are chronic and his overall outcome will be poor. pt has agreed for rehab. pt's blood pressure is still high. will add procardia and increase metoprolol to 100mg bid and will ask nephro is ok to start pt on FILIPE will walk pt by PT to see if we need to increase his oxygen Review of Systems - Review of Systems Eyes: negative: Pain, Vision Change, Conjunctivae Inflammation, Eyelid Inflammation, Redness, Other ENT: negative: Ear Pain, Ear Discharge, Nose Pain, Nose Discharge, Nose Congestion, Mouth Pain, Mouth Swelling, Throat Pain, Throat Swelling, Other Respiratory: negative: Cough, Dry, Shortness of Breath, Hemoptysis, SOB with Excertion, Pleuritic Pain, Sputum, Wheezing Cardiovascular: negative: chest pain, palpitations, orthopnea, paroxysmal nocturnal dyspnea, edema, light headedness, other - Medications/Allergies Allergies/Adverse Reactions: Allergies Allergy/AdvReac Type Severity Reaction Status Date / Time No Known Allergies Allergy Unverified 07/07/14 14:00 Medications: Current Medications Acetaminophen (Tylenol) 650 mg PO Q4H PRN PRN Reason: Headache/Fever or Pain Last Admin: 06/27/17 20:56 Dose: 650 mg Hydrocodone Bitart/Acetaminophen ([place] 5/325) 1 tab PO Q4H PRN PRN Reason: Moderate Pain (4-6) Albuterol Sulfate (Ventolin) 2.5 mg NEB Q2H PRN PRN Reason: Wheezing Albuterol/Ipratropium (Duoneb) 3 ml NEB [id number] [facility] Last Admin: 06/29/17 06:33 Dose: 3 ml Aspirin (Ecotrin) 81 mg PO DAILY [facility] Last Admin: 06/29/17 09:14 Dose: 81 mg Atorvastatin Calcium (Lipitor) 20 mg PO HS [facility] Last Admin: 06/28/17 21:26 Dose: 20 mg Docusate Sodium (Colace) 100 mg PO BID [facility] Last Admin: 06/29/17 09:13 Dose: 100 mg Famotidine (Pepcid) 20 mg SLOW IVP QPM [facility] Last Admin: 06/28/17 21:27 Dose: 20 mg Guaifenesin/Dextromethorphan (Robitussin Dm) 15 ml PO Q4H PRN PRN Reason: Cough Heparin Sodium (Porcine) (Heparin) 5,000 units SC TID [facility] Last Admin: 06/29/17 09:14 Dose: 5,000 units Hydralazine HCl (Apresoline) 10 mg SLOW IVP Q6H PRN PRN Reason: SBP > 180 Last Admin: 06/29/17 03:23 Dose: 10 mg Hydralazine HCl (Apresoline) 75 mg PO TID [facility] Last Admin: 06/29/17 09:13 Dose: 75 mg Azithromycin 500 mg/ Sodium (Chloride) 250 mls @ 250 mls/hr IVPB Q24HR [facility] Last Admin: 06/28/17 16:52 Dose: 250 mls Ceftriaxone Sodium 1 gm/ (Sterile Water) 10 mls @ 120 mls/hr SLOW IVP Q24HR [facility] Last Admin: 06/28/17 15:49 Dose: 10 mls Metoprolol Tartrate (Lopressor) 50 mg PO BID [facility] Last Admin: 06/29/17 09:28 Dose: 50 mg Metoprolol Tartrate (Lopressor) 100 mg PO BID [facility] Nifedipine (Adalat) 10 mg PO TID [facility] Ondansetron HCl (Zofran Odt) 4 mg PO Q6H PRN PRN Reason: Nausea/Vomiting Ondansetron HCl (Zofran) 4 mg IVP Q6H PRN PRN Reason: Nausea/Vomiting Prednisone (Prednisone) 10 mg PO QAM-WM [facility] Last Admin: 06/29/17 09:13 Dose: 10 mg Sodium Chloride (Flush - Normal Saline) 10 ml IVF Q12HR [facility] Last Admin: 06/28/17 21:27 Dose: 10 ml Sodium Chloride (Flush - Normal Saline) 10 ml IVF PRN PRN PRN Reason: Saline Flush
--- NOTE | 2017-06-29 12:14 | RAD ---
CHEST 1 VIEW: Date: 06/29/17 HISTORY: 81-year-old male with history of shortness of breath. COMPARISON: 06/26/17. FINDINGS: Progressive alveolar parenchymal changes in the right lower lobe and left base with bilateral costoph renic angle blunting, evidence for worsening bibasilar pneumonia. IMPRESSION: Worsening bibasilar pneumonia with small bilateral pleural effusions. Continue short-term follow-up f or clearing. POS: [facility]
[2017-06-29] MEDS: NIFEdipine 10 MG CAP PO SCH ×2 (16:06→21:15)
[2017-06-29] MEDS: cefTRIAXone\\ROCEPHIN 1 GM in Sterile Water 10 ML SLOW IVP SCH (16:11)
[2017-06-29] MEDS: Azithromycin 500 MG in Sodium Chloride 0.9% 250 ML 250 ML IVPB SCH (17:52)
[2017-06-29] MEDS: Atorvastatin Calcium 20 MG TAB PO SCH (21:14)
[2017-06-29] MEDS: Metoprolol Tartrate 100 MG TAB PO SCH (21:15)
[2017-06-29] MEDS: Famotidine 40 MG/4 ML VIAL SLOW IVP SCH (21:15)
[2017-06-30] MEDS: Heparin 5,000 UNITS/ML VIAL SC SCH (08:40)
[2017-06-30] MEDS: Aspirin 81 mg Enteric Coated Tablet PO SCH (08:40)
[2017-06-30] MEDS: Metoprolol Tartrate 100 MG TAB PO SCH (08:40)
[2017-06-30] MEDS: Docusate 100 MG CAP PO SCH (08:40)
[2017-06-30] MEDS: NIFEdipine 10 MG CAP PO SCH (08:40)
[2017-06-30] MEDS: predniSONE 20 MG TAB PO SCH (08:41)
[2017-06-30] MEDS: hydrALAZINE 25 MG TAB PO SCH (08:41)
[2017-06-30] MEDS ORDERED: Bisacodyl 10 MG SUPP PR PRN (10:11)
[2017-06-30] MEDS ORDERED: Furosemide 40 MG/4 ML VIAL SLOW IVP SCH (10:15)
[2017-06-30 11:09] LABS: Anion Gap 11 mmol/L (10-20); BUN (Urea Nitrogen) 37 mg/dL (8.4-25.7); Calc. Creatinine Clearance 14 mL/min (70-130); Calcium 9.5 mg/dL (7.8-10.44); Carbon Dioxide 28 mmol/L (23-31); Chloride 105 mmol/L (98-107); Estimated GFR-MDRD 18; Glucose 112 mg/dL (83-110); Potassium 4.5 mmol/L (3.5-5.1); Sodium 139 mmol/L (136-145)
[2017-06-30 11:23] LABS: Hemoglobin 13.6 g/dL (14.0-18.0); Lymphocytes 20 % (21-51); MDiff Complete? YES; Mean Corpuscular HGB CONC 32.2 g/dL (32.0-36.0); Mean Corpuscular Hemoglobin 32.4 pg (27.0-31.0); Mean Platelet Volume 7.4 fL (7.4-10.4); Monocytes 3 % (0-10); Neutrophil 76 % (42-75); Platelet Count 224 thou/uL (130-400); RBC Distribution Width 12.2 % (11.5-14.5); RBC Morphology Normal; Reactive Lymphocytes 1 % (0-10); White Blood Cell (WBC) Count 2.6 thou/uL (4.8-10.8)
[2017-06-30] MEDS: Acetaminophen 325 MG TAB PO PRN (13:00)
[2017-06-30 16:34] VITALS: BP 186/94; TEMP 98
--- NOTE | 2017-07-01 06:14 | DIS ---
DATE OF ADMISSION: 06/26/2017 DATE OF DISCHARGE: 06/30/2017 DISCHARGE DIAGNOSES: 1. Acute on chronic respiratory failure with hypoxia. 2. Possible aspiration pneumonia. 3. Possible urinary tract infection. 4. Severe pulmonary hypertension. 5. Uncontrolled high blood pressure. 6. Chronic kidney disease. HOSPITAL COURSE: The patient is an 81-year-old male who lives by himself who initially presented to the hospital with worsening shortness of breath. The patient does have a history of diastolic heart failure and chronic kidney disease and also severe pulmonary hypertension, who was on oxygen 2 liters all day. At this time, there were concerns for possible aspiration pneumonia given patient's chest x-ray. The patient was seen by Speech Therapy and was put on a mechanical soft with thin liquids. N o use of straw. The patient also was seen by Cardiology and by Nephrology. Patient's creatinine con tinued to be stable and was at his baseline on discharge. Patient was seen by Cardiology. He underw ent an echocardiogram which indicated an EF of 60-65% with severe concentric left ventricular hypertr ophy and severe elevated pulmonary hypertension. Patient initially was treated with IV antibiotics, also was treated with Lasix. His shortness of breath continued to improve throughout the hospital st [facility]. The patient was ambulated up in the hallways slowly and did really well. The patient will be di scharged to rehab facility with a few more days of oral antibiotics and neb treatments. Patient's me dications also have been adjusted for better blood pressure control; however, this is going to be dif ficult. I spoke with the patient's family in details about the patient's code status and given his multiple c omorbidities. Patient, however, at this time wants to be FULL CODE. Palliative also was consulted, but patient wants to be full code right now; however, the patient's sister understands the patient's risks and she is well aware of his wishes. DISCHARGE MEDICATIONS: As the following: Tramadol 50 mg p.o. daily p.r.n., ferrous sulfate 325 p.o. daily, atorvastatin 20 mg daily, aspirin 81 mg p.o. daily, esomeprazole 40 mg p.o. daily, Plavix 75 mg daily, prednisone 10 mg daily, hydralazine 75 mg p.o. t.i.d., clonidine 0.1 b.i.d. p.r.n., nifedip ine 10 mg p.o. q.i.d., metoprolol 100 mg p.o. b.i.d., ipratropium DuoNebs, Colace 100 mg p.o. b.i.d. and Augmentin 250 mg p.o. q.12 hours for an additional 3-4 days. Patient will be [facility]. He will follow up with his PCP in couple weeks and patient has a high risk for readmissio n given his multiple comorbidities. PHYSICAL EXAMINATION: VITAL SIGNS: Upon discharge, the patient's vital signs were as the following, afebrile at 97.5, hear t rate 71, respirations are 18, 97% on 2 liters, blood pressure is 171/81. GENERAL: Awake, alert, oriented x3, does in apparent distress. CARDIOVASCULAR: S1, S2 present. No murmurs, rubs or gallops. LUNGS: Mild crackles to bilateral lower bases. No rhonchi, wheezes noted. ABDOMEN: Soft, nontender. Bowel sounds are present x2. EXTREMITIES: No edema. Pedal pulses are present x2.
--- NOTE | 2017-07-02 13:13 | EKG ---
Test Reason : LETHARGY Blood Pressure : / mmHG Vent. Rate : 073 BPM Atrial Rate : 214 BPM P-R Int : 000 ms QRS Dur : 072 ms QT Int : 414 ms P-R-T Axes : 000 -37 094 degrees QTc Int : 456 ms Atrial fibrillation with a competing junctional pacemaker Left axis deviation Moderate voltage criteria for LVH, may be normal variant Nonspecific ST and T wave abnormality , probably digitalis effect Abnormal ECG Confirmed by LANE BARTLETT ([id number]), manager editorial CRYSTAL CALVO ([id number]) on 07/02/2017 1:12:00 PM Referred By: DHRUV Confirmed By:LANE BARTLETT
== END 2017-06-30 16:39 | disposition home or self-care (01) | DRG 177 ==
LOC: ERS 14:38 → SURG A 20:51
PROVIDERS: ADMIT Family Medicine; ATTEND Family Medicine
DX: J69.0 Pneumonitis due to inhalation of food and vomit (principal); J96.01 Acute respiratory failure with hypoxia; G93.40 Encephalopathy, unspecified; I50.33 Acute on chronic diastolic (congestive) heart failure; N17.9 Acute kidney failure, unspecified; I13.0 Hypertensive heart and chronic kidney disease with heart failure and stage 1 through stage 4 chronic kidney disease, or unspecified chronic kidney disease; N39.0 Urinary tract infection, site not specified; I27.20 Pulmonary hypertension, unspecified; J44.9 Chronic obstructive pulmonary disease, unspecified; N18.3 Chronic kidney disease, stage 3 (moderate); I25.10 Atherosclerotic heart disease of native coronary artery without angina pectoris; Z95.5 Presence of coronary angioplasty implant and graft; F17.210 Nicotine dependence, cigarettes, uncomplicated; Z79.01 Long term (current) use of anticoagulants; Z79.82 Long term (current) use of aspirin; N40.0 Benign prostatic hyperplasia without lower urinary tract symptoms; E78.5 Hyperlipidemia, unspecified
CPT/HCPCS: 36415; 70450; 71045; 80048; 81003; 81015; 82553; 83880; 84145; 84484; 85007; 85025; 85027; 87040; 87804; 90471; 90682; 93005; 93010; 93306; 94640; 94760; 96365; 96366; 96375; A4216; G0008; G8978-GP-CK; G8979-GP-CI; G8987-GO-CJ; G8988-GO-CI; G8996-GN-CJ; G8997-GN-CI; J0360; J0456; J0696; J1644; J1650; J1940; J7050; J7506; J7620; Q2036

== ENCOUNTER 2017-07-10 10:50 | Observation (INO) | payer MEDICARE ==
[2017-07-10 11:47] LABS: #Lymphocytes 0.4 thou/uL (1.20-3.40); #Monocytes 0.4 thou/uL (0.11-0.59); #Neutrophils 3.2 thou/uL (1.40-6.50); %Eosinophils 0.2 % (0.0-10.0); %Lymphocytes 9.7 % (21.0-51.0); %Monocytes 9.7 % (0.0-10.0); %Neutrophils 80.4 % (42.0-75.0); Hemoglobin 12.7 g/dL (14.0-18.0); Mean Corpuscular HGB CONC 32.2 g/dL (32.0-36.0); Mean Corpuscular Hemoglobin 32.8 pg (27.0-31.0); Mean Platelet Volume 7.6 fL (7.4-10.4); Platelet Count 214 thou/uL (130-400); Red Blood Cell (RBC) Count 3.87 mill/uL (4.70-6.10); White Blood Cell (WBC) Count 3.9 thou/uL (4.8-10.8)
--- NOTE | 2017-07-10 11:53 | RAD ---
CHEST 1 VIEW: Date: 07/10/17 HISTORY: Dyspnea. COMPARISON: 11/29/17. FINDINGS: Normal cardiac silhouette. Pulmonary vessels are slightly prominent. There are diffuse interstitial o pacities. Small bilateral pleural effusions are suspected. There is no pneumothorax or osseous abnorm alities. IMPRESSION: 1. Pulmonary vascular prominence. Correlate for volume overload. 2. Bilateral pleural effusions. Continued surveillance. POS: [facility]
[2017-07-10 12:05] LABS: ALT (SGPT) 9 U/L (8-55); AST (SGOT) 15 U/L (5-34); Albumin 3.6 g/dL (3.4-4.8); Alkaline Phosphatase 50 U/L (40-150); Anion Gap 12 mmol/L (10-20); BUN (Urea Nitrogen) 55 mg/dL (8.4-25.7); Bilirubin, Total 0.3 mg/dL (0.2-1.2); Calc. Creatinine Clearance 0 mL/min (70-130); Calcium 8.8 mg/dL (7.8-10.44); Carbon Dioxide 29 mmol/L (23-31); Chloride 102 mmol/L (98-107); Estimated GFR-MDRD 17; Globulin 2.5 g/dL (2.4-3.5); Glucose 111 mg/dL (83-110); Potassium 4.6 mmol/L (3.5-5.1); Protein, Total 6.1 g/dL (5.8-8.1); Sodium 138 mmol/L (136-145)
[2017-07-10 12:10] LABS: CKMB 3.2 ng/mL (0-6.6); Troponin I 0.036 ng/mL (< 0.028)
[2017-07-10] MEDS ORDERED: Nitroglycerin 2% Ointment 1 INCH/1 GM Packet ONE (12:43)
[2017-07-10 16:07] VITALS: TEMP 97.6
[2017-07-10 16:34] VITALS: BMI 17.3
[2017-07-10 17:31] VITALS: BP 185/81
--- NOTE | 2017-07-11 07:58 | SS ---
DATE OF ADMISSION: 07/10/2017 DATE OF DISCHARGE: 07/10/2017 DISCHARGE DIAGNOSES: 1. Chronic obstructive pulmonary disease exacerbation. 2. End-stage chronic obstructive pulmonary disease. 3. Acute respiratory hypoxia secondary to a lack of oxygen. 4. Hypertension. 5. Long tobacco history. 6. Hyperlipidemia. 7. Coronary artery disease. 8. Chronic kidney disease stage 4. 9. Benign prostatic hypertrophy. DISCHARGE MEDICATIONS: Aspirin 81 mg daily, Lipitor 20 mg daily, Dulcolax p.r.n., clonidine 0.1 p.o. b.i.d. p.r.n., Plavix 75 mg daily, Colace 100 p.o. b.i.d., Nexium 40 daily, iron 325 daily, hydralaz ine 25 p.o. t.i.d., hydrocodone 5/325 q.4 p.r.n., DuoNeb q.4 p.r.n., metoprolol 100 p.o. b.i.d., nife dipine 10 p.o. q.i.d., prednisone 10 p.o. daily, and Tramadol 50 p.o. q.6 p.r.n. HISTORY OF PRESENT ILLNESS: This is an 81-year-old black male with end-stage COPD and end-stage preeti l disease with a long tobacco history who presents with acute hypoxia episode. The patient has been relatively stable staying at [facility]. He was previously living at home alone. It turns out that the patient was without his oxygen for a period of time this evening. The nurses there discove red that his pulse ox was quite low and he was sent to the emergency room. Since he has been replace d on his oxygen, the patient is back to his baseline, approximately 10 family members are in the room . The patient is very happy conversing with the patient. He ate his complete dinner. His oxygen sa turation is 92% plus. The patient is in no respiratory distress at this time. He does not complain of any chest pain, nausea, vomiting, shortness of breath. No complaints of wheezing. PAST MEDICAL HISTORY: Includes end-stage COPD due to 63-year tobacco history, followed by Dr. Phelps; hypertension; hyperlipidemia; coronary artery disease, followed by Dr. Zeng; chronic kidney dis ease, stage 4, followed by Dr. Khan; BPH, followed by Dr. Schmidt; osteoarthritis. ALLERGIES: None. PAST SURGICAL HISTORY: Chest tube placed was 2011, cardiac stent x1 by Dr. Zeng, colonoscopy an d EGD normal in 06/[address] Rae. The stents were placed in 05/2013. FAMILY HISTORY: Unremarkable. SOCIAL HISTORY: The patient began tobacco at the age of 17. He quit for a period of time in 2004. He has one to two packs per day over 60 years. No alcohol use. 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 He also worked in the [employer] work. He also worked for for 20 years. He i s x2. He has 11 siblings. No children. REVIEW OF SYSTEMS: As above. PHYSICAL EXAMINATION: VITAL SIGNS: Temperature 97.6, pulse 63, blood pressure 185/81, respiratory rate 16-18, pulse ox 96% on 2 liters O2. GENERAL: The patient in no acute distress. HEENT: Clear. NECK: Supple. HEART: Regular rate and rhythm. LUNGS: Shallow breath sounds, but clear. No rales, no wheezing. ABDOMEN: Soft, nontender. EXTREMITIES: With no edema. LABORATORY: White count 3.9, H&H 12.7 and 39.5, platelet of 214. Electrolytes normal. Creatinine 4 .18, BUN 55, glucose 111. Troponin I 0.036. BNP 1173. ASSESSMENT: 1. Acute respiratory hypoxia secondary to lack of oxygen. This was replaced and the patient's O2 sa ts are back to baseline. 2. End-stage chronic obstructive pulmonary disease, followed by Dr. Phelps. 3. End-stage renal disease. 4. Hypertension and hyperlipidemia. 5. See above. PLAN: 1. Plan to discharge the patient back to [facility]. 2. Resume all medications. 3. Stress the nurses maintain the patient's oxygenation. 4. The patient is still a FULL CODE. The patient is adamant about this and the patient respects his wishes. I did talk to the family at present and discussed that ventilator management would not be a good idea. If he did go on a ventilator, he probably will not come off of the ventilator. They wer e in agreement with this. So at this time, the patient is a full code except for ventilator manageme nt. The patient can return for back to [place] for any respiratory distress or as needed. The susan alamo's creatinine is also elevated as well as BMP, which can be related to his renal disease. [facility] er, at this time, the patient's lungs are clear. He is in no respiratory distress and is doing well.
== END 2017-07-10 18:50 ==
LOC: ERS 10:50 → 2SW 14:23 → 2NO 15:51
PROVIDERS: ADMIT Family Medicine; ATTEND Family Medicine
DX: J44.1 Chronic obstructive pulmonary disease with (acute) exacerbation (principal); R09.02 Hypoxemia; I12.9 Hypertensive chronic kidney disease with stage 1 through stage 4 chronic kidney disease, or unspecified chronic kidney disease; N18.4 Chronic kidney disease, stage 4 (severe); E78.5 Hyperlipidemia, unspecified; I25.10 Atherosclerotic heart disease of native coronary artery without angina pectoris; N40.0 Benign prostatic hyperplasia without lower urinary tract symptoms; Z79.82 Long term (current) use of aspirin; Z79.899 Other long term (current) drug therapy
CPT/HCPCS: 36415; 71045; 80053; 82553; 83880; 84484; 85025; 93005; 94760

== ENCOUNTER 2017-07-21 10:42 | Inpatient (IN) | payer MEDICARE ==
--- NOTE | 2017-07-21 11:29 | RAD ---
SINGLE VIEW CHEST: Date: 07/21/17 COMPARISON: 07/10/17. HISTORY: Hypoxic state. FINDINGS: Single view of the chest shows a normal sized cardiomediastinal silhouette. There are multifocal mixe d alveolar/interstitial opacities in the lungs. These are nonspecific. There is obscurity of the righ t hemidiaphragm which may represent a small right pleural effusion. IMPRESSION: 1. Multifocal opacities are grossly stable compared to the prior examination and are nonspecific. 2. Possible small right pleural effusion. POS: [facility]
[2017-07-21 11:30] LABS: Actual Bicarbonate (HCO3a) 31.6 mEq/L (22-26); Base Excess (BEa) 2.5 mEq/L (0 (+/-) 2.5); O2 Tension (PaO2) 39.4 mmHg (80.0-100.0); pH, Arterial 7.24 (7.35-7.45)
[2017-07-21 11:31] LABS: Analyzer IN Cardio ER; Calcium, Ionized 1.2 mmol/L (1.12-1.30); Hematocrit-ABG 36.9 % (42.0-52.0); Hemoglobin (Hb) 11.7 g/dL (14.0-18.0); Potassium - ABG Lab 5.6 mmol/L (3.70-5.30); Puncture Site RRA
[2017-07-21] MEDS ORDERED: methylPREDNISolone Sod Succ/PF 125 MG/2 ML VIAL ONE (11:45)
[2017-07-21] MEDS ORDERED: Water For Inject, Bacteriostat 30 ML ONE (11:45)
[2017-07-21] MEDS ORDERED: Albuterol Sulfate 2.5 mg/3 ml Neb ONE (11:49)
[2017-07-21] MEDS ORDERED: Albuterol Sulfate 2.5 mg/0.5 ml Neb ONE (11:49)
[2017-07-21 11:50] LABS: #Lymphocytes 0.4 thou/uL (1.20-3.40); #Monocytes 0.5 thou/uL (0.11-0.59); #Neutrophils 4.9 thou/uL (1.40-6.50); %Basophils 0.6 % (0.0-1.0); %Eosinophils 0.2 % (0.0-10.0); %Lymphocytes 6.9 % (21.0-51.0); %Monocytes 8.6 % (0.0-10.0); %Neutrophils 83.7 % (42.0-75.0); Hemoglobin 12.8 g/dL (14.0-18.0); Mean Corpuscular HGB CONC 31.9 g/dL (32.0-36.0); Mean Corpuscular Hemoglobin 33.3 pg (27.0-31.0); Mean Platelet Volume 8.1 fL (7.4-10.4); Platelet Count 173 thou/uL (130-400); RBC Distribution Width 11.9 % (11.5-14.5); Red Blood Cell (RBC) Count 3.84 mill/uL (4.70-6.10); White Blood Cell (WBC) Count 5.8 thou/uL (4.8-10.8)
[2017-07-21 11:53] LABS: Bilirubin Negative (Negative); Clarity CLOUDY (Clear); Glucose, Urine (Dipstick) Negative (Negative); Leukocyte Moderate (Negative); Nitrite Negative (Negative); Protein, Urine (Dipstick) 300 mg/dL (Neg-Trace); Specific Gravity, Urine 1.021 (1.002-1.036); Urobilinogen 0.2 mg/dL (0.2-1.0)
[2017-07-21 12:00] LABS: Pathc Cast-AUWi Flag 6.39 (0-2.49)
[2017-07-21 12:09] LABS: Blood, Urine Trace (Negative)
[2017-07-21 12:10] LABS: Bacteria/HPF Rare-Few HPF (None Seen); Hyaline Casts/LPF NONE SEEN LPF (0-3 Hyaline); Renal Epithelial 0-3 HPF (0-3); Squamous Epithelial 0-3 HPF (0-3); Trichomonas/HPF 1+ HPF (None Seen)
[2017-07-21 12:10] LABS: Troponin I 0.049 ng/mL (< 0.028)
[2017-07-21 12:11] LABS: Crystals/HPF 1+ AMORPH URATES HPF (Negative); Other Casts/LPF None Seen LPF (0-3 Hyaline)
[2017-07-21 12:11] LABS: ALT (SGPT) 9 U/L (8-55); AST (SGOT) 19 U/L (5-34); Albumin 3.8 g/dL (3.4-4.8); Alkaline Phosphatase 55 U/L (40-150); Anion Gap 14 mmol/L (10-20); BUN (Urea Nitrogen) 59 mg/dL (8.4-25.7); Bilirubin, Total 0.3 mg/dL (0.2-1.2); CK (CPK) 74 U/L (30-200); Calc. Creatinine Clearance 0 mL/min (70-130); Calcium 8.5 mg/dL (7.8-10.44); Carbon Dioxide 28 mmol/L (23-31); Chloride 106 mmol/L (98-107); Estimated GFR-MDRD 16; Globulin 2.5 g/dL (2.4-3.5); Glucose 101 mg/dL (83-110); Potassium 6.2 mmol/L (3.5-5.1); Protein, Total 6.3 g/dL (5.8-8.1); Sodium 142 mmol/L (136-145)
[2017-07-21 12:30] LABS: Actual Bicarbonate (HCO3a) 31.4 mEq/L (22-26); Base Excess (BEa) 2.3 mEq/L (0 (+/-) 2.5); CO2 Tension 74.7 mmHg (35.0-45.0); Hematocrit-ABG 35.8 % (42.0-52.0); Hemoglobin (Hb) 11.6 g/dL (14.0-18.0); O2 Tension (PaO2) 82.8 mmHg (80.0-100.0); pH, Arterial 7.24 (7.35-7.45)
[2017-07-21 12:31] LABS: ALV-art Gradient 180.325 (0-20); Analyzer IN Cardio ER; Calcium, Ionized 1.2 mmol/L (1.12-1.30); Potassium - ABG Lab 5.6 mmol/L (3.70-5.30); Puncture Site RBRACH
[2017-07-21] MEDS ORDERED: Lorazepam 2 MG/ML VIAL ONE (12:38)
[2017-07-21] MEDS ORDERED: Midazolam HCl 2 mg/2 ml Vial ONE (15:41)
[2017-07-21 16:19] LABS: Actual Bicarbonate (HCO3a) 28.5 mEq/L (22-26); Base Excess (BEa) -1.3 mEq/L (0 (+/-) 2.5); CO2 Tension 76.5 mmHg (35.0-45.0); Calcium, Ionized 1.2 mmol/L (1.12-1.30); Hematocrit-ABG 38.6 % (42.0-52.0); Hemoglobin (Hb) 11.9 g/dL (14.0-18.0); O2 Tension (PaO2) 70.6 mmHg (80.0-100.0); pH, Arterial 7.19 (7.35-7.45)
[2017-07-21 16:20] LABS: ALV-art Gradient 95.735 (0-20); Puncture Site RBA
[2017-07-21] MEDS ORDERED: Sedation Protocol FS ONE (16:35)
[2017-07-21] MEDS ORDERED: Milk Of Magnesia 30 ML UDCUP PO PRN (16:35)
[2017-07-21] MEDS ORDERED: Ondansetron PF 4 MG/2 ML Vial IVP PRN (16:35)
[2017-07-21] MEDS ORDERED: Lacri-Lube Opth Oint 3.5 GM TUBE EA EYE PRN (16:35)
[2017-07-21] MEDS ORDERED: Propofol 1,000 MG/100 ML VIAL IV ONE (16:40)
[2017-07-21] MEDS ORDERED: PROPOFOL 0 ML ONE (16:40)
[2017-07-21] MEDS ORDERED: Fentanyl BOLUS 250 ML IVPB PRN (16:51)
[2017-07-21] MEDS ORDERED: Morphine 2 MG/ML SYRINGE SLOW IVP PRN (16:51)
[2017-07-21] MEDS ORDERED: DISCONTINUE PREVIOUS NARCOTIC PAIN MEDICATIONS AND BENZODIAZEPINES FS SCH (16:51)
[2017-07-21] MEDS ORDERED: Lorazepam 2 MG/ML VIAL SLOW IVP PRN (16:51)
--- NOTE | 2017-07-21 17:33 | RAD ---
PORTABLE CHEST ONE VIEW 07/21/17 at 3:57 p.m. HISTORY: Code Blue, respiratory failure, cardiac arrest. FINDINGS/IMPRESSION: Comparison is made with exam of 10:58 a.m. from the same date. There has been interval placement of an endotracheal tube with tip at the level of the clavicular hea ds and nasogastric tube has been placed which curves in the stomach and the tip is directed towards t he GE junction. The heart size is normal. There are bibasilar infiltrates/atelectatic changes. No pneumothoraces are seen. Small effusions may be present. POS: [facility]
--- NOTE | 2017-07-21 17:38 | CON ---
DATE OF CONSULTATION: 07/21/2017 SERVICE: Pulmonary Medicine. REASON FOR CONSULTATION: Respiratory failure. HISTORY OF PRESENT ILLNESS: The patient is an 81-year-old -[place] male with end-stage COPD. 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 He also has failure to thrive. In this baseline state of health, he was supp osed to have oxygen set up at his home. Unfortunately, he was given an empty tank and/or went throug h it so quickly and he ran out of oxygen. He became increasingly short of breath. He presented to [facility] Emergency Department with acute dyspnea. On initial evaluation, he was put on BiPAP. Apparently, he was talking in sentences shortly after presenting to the Emergency Department. That being said, because of a little bit of agitation, he ended up getting a dose of Ativan close to when he was sent up to the ICU. When he arrived in the ICU, he was essentially apneic. He had poor color. He was no nresponsive. As such, adiel jones was called. The patient never lost pulse, but his saturations were extraordinarily low. He was bagged up with an Ambu bag. After intubation, his oxygen saturations i mproved dramatically. He truthfully was not requiring significant support off the ventilator. It ap pears that he was unable to do the little work of breathing that was necessary for him to get by. PAST MEDICAL HISTORY: 1. COPD. 2. Hypertension. 3. Coronary artery disease. 4. Chronic kidney disease, stage 3. PAST SURGICAL HISTORY: Percutaneous coronary intervention. SOCIAL HISTORY: He is a nonsmoker currently. He has a greater than [id number] history of smoking. He has no exposure to alcohol or illicit drug use currently. FAMILY HISTORY: Noncontributory ALLERGIES: No known drug allergies. MEDICATIONS: List of his inpatient medications were reviewed. Multiple updates were made at this ti or. REVIEW OF SYSTEMS: This cannot be obtained as the patient is currently intubated and encephalopathic . PHYSICAL EXAMINATION: GENERAL: The patient is intubated. VITAL SIGNS: Afebrile, pulse 53, blood pressure 185/81, respirations 16, saturation 96% on 27% FiO2 and a PEEP of 5. HEENT: Normocephalic and atraumatic. Sclerae are white, conjunctivae pink. Oral and nasal mucosa i s moist without lesions. Temporal wasting is present. LUNGS: Reduced air entry with a prolonged expiratory phase. I do not appreciate wheezing, rhonchi, or crackles, but truth be told, he is not moving enough air to appreciate these things. HEART: Normal rate and regular. ABDOMEN: Soft, nontender and nondistended. Bowel sounds are positive. MUSCULOSKELETAL: No cyanosis or clubbing. There is pitting in the bilateral lower extremities, whic h is roughly 1+. GENITOURINARY: Parisi catheter in place. NEUROLOGIC: Grossly nonfocal. LABORATORY DATA: WBC 5.8, hemoglobin 12.8 and platelets 173. PH of 7.19, pCO2 of 76 and pO2 of 70.1 . Creatinine 4.38 and BUN 59. Basic metabolic profile is essentially unremarkable otherwise except for potassium of 6.2. Lactate was unremarkable. Troponin 0.049. Liver function studies were unrema rkable. Blood cultures x2 and Influenza A and B are negative. IMAGING DATA: Chest x-ray demonstrates hyperexpanded lung mckeon bilaterally. There is an endotrach eal tube, which is roughly 4 cm above the zenia. Enteric catheter is coursing below the level of th e diaphragm. There is interstitial infiltrate throughout the right lung. Pulmonary vasculature is p rominent. There are small bilateral pleural effusions present on this study. ASSESSMENT: 1. Acute on chronic hypoxic and hypercapnic respiratory failure. 2. Chronic obstructive pulmonary disease with acute exacerbation. 3. Severe protein-calorie malnutrition. 4. Severe deconditioning. PLAN: We will support the patient on mechanical ventilation. He has already been intubated. Please refer to code documentation for the things that were done to him at that time. We will put him on n ebulized medications, steroids, and antibiotics. We will watch his volume status closely. We will t ry to minimize fluids moving forward. Echocardiogram will be considered if one has not been done rec ently. Palliative Care consultation will certainly be placed as the patient is almost certainly at t he end of his life from end-stage COPD. Dr. Phelps will be notified that the patient is here and assu me care in the morning. CRITICAL CARE TIME: 45 minutes.
[2017-07-21] MEDS: fentaNYL Citrate/PF 2,000 MCG in Sodium Chloride 0.9% 60 ML IV SCH (19:07)
[2017-07-21] MEDS ORDERED: Calcium Chloride 1 GM/10 ML Abboject SYRINGE IVP SCH (19:45)
[2017-07-21 20:30] LABS: Magnesium 2.4 mg/dL (1.6-2.6); Phosphorus 4.7 mg/dL (2.3-4.7); Potassium 5.7 mmol/L (3.5-5.1)
--- NOTE | 2017-07-22 03:33 | HP ---
DATE OF ADMISSION: 07/21/2017 CHIEF COMPLAINT: Shortness of breath. HISTORY OF PRESENT ILLNESS: This is an 81-year-old black male, a patient of Dr. Moses Cisneros's who w as brought to the emergency room by EMS for shortness of breath had been discharged home from [facility] per request. His O2 that was received at the house evidently ran out of his oxygen very quickly a nd he was without oxygen for at least a day if not up 2 days, was brought to the ER and found to be s everely hypercapnic, was started on BiPAP with O2 and was still very weak and was plan on being put i n the ICU, just prior to coming up to the ICU, he became apneic and was intubated and placed on the v ent. PAST MEDICAL HISTORY: Severe end-stage chronic obstructive pulmonary disease is followed by Dr. Jose Ramon cuevas. Has hypertension, hyperlipidemia, coronary artery disease, stage 4 renal disease, pulmonary hyper tension, had an echo last month while in the hospital showing severe diastolic dysfunction with left atrial enlargement. PAST SURGICAL HISTORY: He had a chest tube placed in 2011, cardiac stent in 2013. ALLERGIES: No known drug allergies. MEDICATIONS: Aspirin 81 mg a day, Lipitor 20 mg a day, Plavix 75 mg a day, hydralazine 25 mg t.i.d., Toprol 100 mg b.i.d., nifedipine 10 mg q.i.d., prednisone 10 mg daily, clonidine 0.1 mg p.r.n., and p.r.n. [place] 5/325, he had p.r.n. tramadol, and he also had p.r.n. stool softeners. SOCIAL HISTORY: He is retired [employer]. x2. Eleven siblings. No children. He has a 48-qanp-dewk smoker, smoking 1-2 packs per day. His history is all received by previous no antony. REVIEW OF SYSTEMS: Unobtainable due to patient being intubated. PHYSICAL EXAMINATION: VITAL SIGNS: He is afebrile, blood pressure is 130s over 50s, pulse 70s, sats 95-97 on vent. GENERAL: He is obtunded and intubated. He does wake up and try to respond with his eyes. HEENT: Pupils are sluggish. There is no JVD, no bruits. NECK: Supple. LUNGS: Very poor distant breath sounds. HEART: S1, S2, with no rubs, murmurs, or gallops. ABDOMEN: Soft, nontender, nondistended. EXTREMITIES: Show good palpable pulses x4. GENITOURINARY: Urinary exam, his Parisi shows yellow urine. NEUROLOGIC: He is obtunded chemically. LABORATORY DATA: His pH was 7.19, his pCO2 was 76.5, his pO2 was 70.6. On chemistry, sodium 142, po tassium 6.2, chloride 106, bicarbonate 28, BUN is 59, creatinine is 4.38, GFR is 16, glucose at 101. Beta natriuretic peptide 2601. CBC shows normal white count of 5.8, H and H is 12.8 and 40.0 respec tively with 173,000 platelets. ASSESSMENT: Acute hypoxia, recurrent with very severe chronic obstructive pulmonary disease and juarez tolic failure, pulmonary hypertension, and stage 4 renal failure. PLAN: Plan is to maintain his intubated status per Dr. Moulton saw him for Pulmonology and ICU care. He will take over care obviously from the ICU.
[2017-07-22] MEDS: Propofol 1,000 MG/100 ML VIAL IV PRN ×2 (04:21→17:11)
[2017-07-22 04:39] LABS: #Lymphocytes 0.4 thou/uL (1.20-3.40); #Monocytes 0.7 thou/uL (0.11-0.59); #Neutrophils 4.4 thou/uL (1.40-6.50); %Eosinophils 0.1 % (0.0-10.0); %Lymphocytes 6.5 % (21.0-51.0); %Monocytes 13.4 % (0.0-10.0); Hemoglobin 9.9 g/dL (14.0-18.0); Mean Corpuscular HGB CONC 31.8 g/dL (32.0-36.0); Mean Corpuscular Hemoglobin 33.5 pg (27.0-31.0); Mean Platelet Volume 8.5 fL (7.4-10.4); Platelet Count 139 thou/uL (130-400); RBC Distribution Width 11.9 % (11.5-14.5); Red Blood Cell (RBC) Count 2.96 mill/uL (4.70-6.10); White Blood Cell (WBC) Count 5.5 thou/uL (4.8-10.8)
[2017-07-22 04:54] LABS: Anion Gap 13 mmol/L (10-20); BUN (Urea Nitrogen) 65 mg/dL (8.4-25.7); Calc. Creatinine Clearance 11 mL/min (70-130); Calcium 8.2 mg/dL (7.8-10.44); Carbon Dioxide 29 mmol/L (23-31); Chloride 106 mmol/L (98-107); Estimated GFR-MDRD 14; Potassium 5.8 mmol/L (3.5-5.1); Sodium 142 mmol/L (136-145)
[2017-07-22 04:58] LABS: Glucose 58 mg/dL (83-110)
[2017-07-22] MEDS ORDERED: Dextrose 50% Abboject 50 ML SYRINGE ONE (05:01)
[2017-07-22] MEDS: Famotidine 20 MG TAB PER TUBE SCH (08:39)
[2017-07-22] MEDS: Furosemide 40 MG/4 ML VIAL ONE (08:48)
[2017-07-22] MEDS ORDERED: Furosemide 40 MG/4 ML VIAL SLOW IVP SCH (09:30)
[2017-07-22] MEDS ORDERED: Pancrelipase DR 12000 1 CAP FS PRN (15:34)
[2017-07-22] MEDS ORDERED: Sodium Bicarbonate Tab 325 MG TAB PER TUBE PRN (15:34)
[2017-07-22] MEDS: fentaNYL Citrate/PF 2,000 MCG in Sodium Chloride 0.9% 60 ML IV SCH (16:37)
[2017-07-23] MEDS: Propofol 1,000 MG/100 ML VIAL IV PRN ×3 (04:45→21:33)
[2017-07-23 05:16] LABS: #Lymphocytes 0.4 thou/uL (1.20-3.40); #Monocytes 0.6 thou/uL (0.11-0.59); #Neutrophils 3.3 thou/uL (1.40-6.50); %Basophils 0.5 % (0.0-1.0); %Eosinophils 0.2 % (0.0-10.0); %Lymphocytes 9.7 % (21.0-51.0); %Monocytes 13.2 % (0.0-10.0); %Neutrophils 76.5 % (42.0-75.0); Hemoglobin 10.1 g/dL (14.0-18.0); Mean Corpuscular HGB CONC 31.9 g/dL (32.0-36.0); Mean Corpuscular Hemoglobin 33.5 pg (27.0-31.0); Mean Platelet Volume 8.3 fL (7.4-10.4); Platelet Count 123 thou/uL (130-400); RBC Distribution Width 12.2 % (11.5-14.5); Red Blood Cell (RBC) Count 3.02 mill/uL (4.70-6.10); White Blood Cell (WBC) Count 4.3 thou/uL (4.8-10.8)
[2017-07-23 05:32] LABS: Anion Gap 15 mmol/L (10-20); BUN (Urea Nitrogen) 75 mg/dL (8.4-25.7); Calc. Creatinine Clearance 10 mL/min (70-130); Calcium 8.3 mg/dL (7.8-10.44); Carbon Dioxide 24 mmol/L (23-31); Chloride 106 mmol/L (98-107); Estimated GFR-MDRD 12; Glucose 112 mg/dL (83-110); Potassium 5.3 mmol/L (3.5-5.1); Sodium 140 mmol/L (136-145)
[2017-07-23 08:42] LABS: CO2 Tension 40.7 mmHg (35.0-45.0); O2 Tension (PaO2) 81.8 mmHg (80.0-100.0); pH, Arterial 7.44 (7.35-7.45)
[2017-07-23 08:43] LABS: Actual Bicarbonate (HCO3a) 27.2 mEq/L (22-26); Base Excess (BEa) 2.9 mEq/L (0 (+/-) 2.5); Calcium, Ionized 1.2 mmol/L (1.12-1.30); Carboxyhemoglobin (COHb) 1.2 gm% (0.0-3.0); Hematocrit-ABG 27.3 % (42.0-52.0); Hemoglobin (Hb) 8.9 g/dL (14.0-18.0); Potassium - ABG Lab 5.1 mmol/L (3.70-5.30); Puncture Site RBA
[2017-07-23 08:57] LABS: ALV-art Gradient 131.135 (0-20)
[2017-07-23] MEDS: Famotidine 20 MG TAB PER TUBE SCH (09:19)
[2017-07-23] MEDS: fentaNYL Citrate/PF 2,000 MCG in Sodium Chloride 0.9% 60 ML IV SCH (13:02)
--- NOTE | 2017-07-23 18:56 | PRG ---
DATE OF SERVICE: 07/23/2017 HISTORY OF PRESENT ILLNESS: The patient remains intubated and sedated. He is arousable and I will a ttempt to follow commands, moving upper extremities once or twice, was unable to move the feet on com sherrie while active sedation was being undertaken, remains intubated on tube feeds. Reports per janina [facility] staff that family meeting will be held on Tuesday for a family's desires if they wish to terminal ex tubate or additional long-term management options. The patient was unavailable to answer questions t o his current sedation. No family at bedside. OBJECTIVE: VITAL SIGNS: Temperature of 98.1, heart rate of 80, blood pressure 158/66, oxygen saturation 95% on ventilator. GENERAL: The patient is arousable, but largely sedated. HEENT: Head is normocephalic, atraumatic. Extraocular movements are intact; however, does not readi ly follow commands for eye movements. ET tube and OG tube in place. ABDOMEN: Nondistended, positive bowel sounds throughout. LUNGS: With coarse breath sounds bilaterally. HEART: Irregularly irregular, but P waves do appear to be present on the monitor at time of exam. EXTREMITIES: Lower extremities without cyanosis or edema. The patient is arousable, can squeeze gri ps, not moving lower extremities, but is still somewhat sedated during neurologic exam. Reflexes rem ain intact bilaterally. LABORATORY DATA: White blood cell count of 4.3, hemoglobin of 10.1, platelet count of 123. ABG, pH 7.4, pO2 of 81, pCO2 of 40, creatinine of 5.6, potassium of 5.3, sodium of 140, CO2 of 24, glucose of 112. Cultures currently negative at 48 hours, both urine and blood. ASSESSMENT AND PLAN: Acute on chronic respiratory failure secondary to end-stage chronic obstructive pulmonary disease, pulmonary hypertension, chronic kidney disease stage 4. Irregular heartbeat. We will follow Pulmonary Critical care's recommendations as far as attempted to extubate. The patient remains on steroids, breathing treatments, and antibiotic. The patient remains on his blood pressure medications; however, has continued to have marginal kidney function which is his baseline. He has had a history of irregular heart rate dating back several years which appears to be intermittent, not currently appears to be in atrial fibrillation. We will go ahead and add on prophylactic Lovenox; h owever, and continue to monitor the patient's heart rate. As per current plan, palliative care talke d with family members on Tuesday if patient does not appear to be able to extubate in the next 2 days.
[2017-07-23] MEDS: Enoxaparin Sodium 30 MG/0.3 ML SYRINGE SC SCH (21:31)
[2017-07-24 04:34] LABS: Anion Gap 11 mmol/L (10-20); BUN (Urea Nitrogen) 80 mg/dL (8.4-25.7); Calc. Creatinine Clearance 9 mL/min (70-130); Calcium 8.5 mg/dL (7.8-10.44); Carbon Dioxide 28 mmol/L (23-31); Chloride 105 mmol/L (98-107); Estimated GFR-MDRD 12; Glucose 104 mg/dL (83-110); Lipase 13 U/L (8-78); Potassium 4.9 mmol/L (3.5-5.1); Sodium 139 mmol/L (136-145)
[2017-07-24 04:53] LABS: #Lymphocytes 0.2 thou/uL (1.20-3.40); #Monocytes 0.5 thou/uL (0.11-0.59); #Neutrophils 3.1 thou/uL (1.40-6.50); %Eosinophils 0.1 % (0.0-10.0); %Monocytes 12.4 % (0.0-10.0); %Neutrophils 82.5 % (42.0-75.0); Hemoglobin 8.9 g/dL (14.0-18.0); Mean Corpuscular HGB CONC 33.4 g/dL (32.0-36.0); Mean Corpuscular Hemoglobin 34.3 pg (27.0-31.0); Mean Platelet Volume 8.4 fL (7.4-10.4); Platelet Count 110 thou/uL (130-400); White Blood Cell (WBC) Count 3.7 thou/uL (4.8-10.8)
[2017-07-24] MEDS: Famotidine 20 MG TAB PER TUBE SCH (07:22)
[2017-07-24] MEDS: Propofol 1,000 MG/100 ML VIAL IV PRN (07:40)
[2017-07-24 08:39] LABS: Actual Bicarbonate (HCO3a) 28.9 mEq/L (22-26); Base Excess (BEa) 2.9 mEq/L (0 (+/-) 2.5); CO2 Tension 52.7 mmHg (35.0-45.0); Carboxyhemoglobin (COHb) 1.5 gm% (0.0-3.0); Hematocrit-ABG 25.5 % (42.0-52.0); Hemoglobin (Hb) 8.3 g/dL (14.0-18.0); O2 Tension (PaO2) 79.8 mmHg (80.0-100.0); pH, Arterial 7.36 (7.35-7.45)
[2017-07-24 08:40] LABS: ALV-art Gradient 118.135 (0-20); Calcium, Ionized 1.2 mmol/L (1.12-1.30); Potassium - ABG Lab 4.8 mmol/L (3.70-5.30); Puncture Site RBA
[2017-07-24] MEDS ORDERED: DC Sedation Protocol FS ONE (10:22)
[2017-07-24] MEDS ORDERED: cloNIDine 0.1 MG TAB PO PRN (10:45)
[2017-07-24] MEDS ORDERED: Clopidogrel Bisulfate 75 MG TAB PO SCH (11:15)
[2017-07-24] MEDS ORDERED: hydrALAZINE 25 MG TAB PO SCH (11:15)
--- NOTE | 2017-07-24 11:15 | PRG ---
DATE OF SERVICE: 07/23/2017 SUBJECTIVE: An 81-year-old elderly gentleman with severe COPD, intubated on the vent and sedated. OBJECTIVE: GENERAL: He is minimally responsive. Neurologically, he does move all four extremities. He appears to be cachectic. VITAL SIGNS: Blood pressure is 160/50, pulse 93, sats 98%, respirations 23. He is afebrile. I's and O's good_. CHEST: Decreased breath sounds without any wheezing. CARDIAC: Normal S1, S2. No gallops. ABDOMEN: Soft. No masses. LABORATORY DATA: White count 4000, H and H 10 and 30 and platelet count 123, creatinine 5.3. IMPRESSION: 1. Respiratory failure, end-stage chronic obstructive pulmonary disease. 2. Renal failure. 3. Bilateral pneumonia. PLAN: Continue neb treatments, steroids, vent, nutrition, PT. He is not weanable at this stage. Family will make a decision in the next 24 hours for ongoing care. One-half hour critical care time. TODD
[2017-07-24] MEDS: hydrALAZINE 25 MG TAB PO SCH ×2 (16:00→20:14)
[2017-07-24] MEDS ORDERED: Vancomycin HCl 1 GM in Premix Bag 1 BAG IVPB SCH (17:00)
[2017-07-24] MEDS: Enoxaparin Sodium 30 MG/0.3 ML SYRINGE SC SCH (20:14)
[2017-07-24] MEDS: NIFEdipine XL 60 MG TAB PO SCH (20:15)
[2017-07-25 04:54] LABS: #Lymphocytes 0.1 thou/uL (1.20-3.40); #Monocytes 0.1 thou/uL (0.11-0.59); #Neutrophils 2.9 thou/uL (1.40-6.50); %Lymphocytes 4.3 % (21.0-51.0); %Monocytes 3.9 % (0.0-10.0); %Neutrophils 91.8 % (42.0-75.0); Hemoglobin 9.8 g/dL (14.0-18.0); Mean Corpuscular HGB CONC 32.2 g/dL (32.0-36.0); Mean Corpuscular Hemoglobin 33.2 pg (27.0-31.0); Mean Platelet Volume 8.2 fL (7.4-10.4); Platelet Count 117 thou/uL (130-400); RBC Distribution Width 11.8 % (11.5-14.5); Red Blood Cell (RBC) Count 2.93 mill/uL (4.70-6.10); White Blood Cell (WBC) Count 3.2 thou/uL (4.8-10.8)
[2017-07-25 05:05] LABS: Anion Gap 13 mmol/L (10-20); BUN (Urea Nitrogen) 87 mg/dL (8.4-25.7); Calc. Creatinine Clearance 9 mL/min (70-130); Calcium 8.6 mg/dL (7.8-10.44); Carbon Dioxide 28 mmol/L (23-31); Chloride 104 mmol/L (98-107); Estimated GFR-MDRD 12; Glucose 74 mg/dL (83-110); Potassium 5.9 mmol/L (3.5-5.1); Sodium 139 mmol/L (136-145)
--- NOTE | 2017-07-25 08:12 | PRG ---
DATE OF SERVICE: 07/25/2017 SUBJECTIVE: The patient is awake, alert, conversing. Answers all the questions appropriately. He a ppears to be at baseline. No complaints of shortness of breath or chest pain. OBJECTIVE: VITAL SIGNS: Blood pressure 159/63, respirations 17, pulse 92, pulse ox 100%. HEART: Regular rate and rhythm with frequent PACs. LUNGS: Clear. ABDOMEN: Soft. EXTREMITIES: No edema. LABORATORY DATA: White count 3.2, H and H 9.8 and 30.3. Electrolytes: Sodium 139, potassium 5.9, C O2 of 28, creatinine 5.59 and BUN 87. ASSESSMENT: 1. Acute on chronic hypoxic and hypercapnic respiratory failure. 2. Chronic obstructive pulmonary disease with acute exacerbation. 3. Severe deconditioning. 4. Hypertension. 5. Chronic kidney disease, stage 4. 6. Hyperlipidemia. 7. Long tobacco history. 8. Coronary artery disease. 9. Benign prostatic hypertrophy. PLAN: 1. Continue breathing treatments, antibiotics. 2. Continue to monitor electrolytes and kidney functions. 3. Palliative care consult pending. As of the patient's last hospital stay, he has remained a FULL CODE. The family is reluctant to change this. 4. Physical therapy if okay with Dr. Moulton. 5. We will continue to follow.
[2017-07-25] MEDS: Clopidogrel Bisulfate 75 MG TAB PO SCH (09:50)
[2017-07-25] MEDS: Famotidine 20 MG TAB PER TUBE SCH (09:50)
[2017-07-25] MEDS: hydrALAZINE 25 MG TAB PO SCH ×3 (09:51→21:27)
--- NOTE | 2017-07-25 10:47 | PRG ---
DATE OF SERVICE: 07/24/2017 SUBJECTIVE: Fabio De La Rosa is an 81-year-old gentleman, intubated on the vent, sedated. OBJECTIVE: VITAL SIGNS: Blood pressure is 163/100, pulse 87, respiratory rate 18, sats are 99%. I's and O's 14 99 in and 812 out. CHEST: Reveals bilateral rhonchi. CARDIAC: Sinus tachycardia. ABDOMEN: Soft. NEUROLOGIC: Sedated. EXTREMITIES: No edema. LABORATORY DATA: His pO2 is 81, pCO2 40, pH 7.44, rate of 14. Creatinine 5.6, BUN is 80. White cou nt is 3000, H&H 8 and 26. IMPRESSION: 1. Respiratory failure, chronic obstructive pulmonary disease exacerbation. 2. Chronic renal failure. 3. Cachexia. 4. Severe deconditioning. PLAN: Minimize sedation. Continue steroids and neb treatments and antibiotics. We will follow. One-half hour critical care time.
--- NOTE | 2017-07-25 12:14 | PRG ---
DATE OF SERVICE: 07/25/2017 SERVICE: Pulmonary Medicine. INTERVAL HISTORY: The patient is doing fine from cardiovascular and respiratory standpoint. He domo es any shortness of breath or chest discomfort. He no longer has an endotracheal tube. Otherwise, t here has been no interval change to his condition. PHYSICAL EXAMINATION: VITAL SIGNS: Afebrile, pulse 88, blood pressure 172/69, respirations 18 and saturation 93% on 2 lite rs nasal cannula. GENERAL: The patient is awake and alert, in no apparent distress. LUNGS: Decent air entry. There are no crackles present. There is improvement to the prolongation i n his expiratory phase and better air entry. I do not appreciate wheezing or rhonchi today. HEART: Normal rate and regular. ABDOMEN: Soft, nontender and nondistended. Bowel sounds are positive. MUSCULOSKELETAL: No cyanosis or clubbing. There is no pitting in the bilateral lower extremities. NEUROLOGIC: Grossly nonfocal. LABORATORY DATA: WBC 3.2, hemoglobin 9.8 and platelets 117,000. Neutrophil count is 92%. PH of 7.3 6, pCO2 of 53 and pO2 of 78. Creatinine 5.59, BUN 87 and potassium 5.9. Basic metabolic profile is otherwise unremarkable. Lipase is 13. Urinalysis is unremarkable. One out of 2 blood cultures are growing coag negative staph. Urine culture remains unremarkable. ASSESSMENT: 1. Acute on chronic hypoxic and hypercapnic respiratory failure. 2. Chronic obstructive pulmonary disease with acute exacerbation. 3. Severe protein-calorie malnutrition. 4. Deconditioning, severe. PLAN: The patient can be transitioned out of the ICU to the regular floor. Pulmonary Critical Care will continue to follow for the time being. We will continue to diurese the patient to make certain he is maintained close to euvolemia.
--- NOTE | 2017-07-25 12:28 | PRG ---
DATE OF SERVICE: 07/24/2017 SUBJECTIVE: The patient has been successfully extubated this a.m. He is alert and oriented. Report s sore throat and some sputum production. He has no other acute complaints. Verbalizes biin g regarding current situation. No family at bedside at the time of the exam. OBJECTIVE: VITAL SIGNS: This a.m., temperature 98.6, blood pressure 167/71, oxygen saturation 98% on 2 liters n yakelin cannula, respiratory rate of 18 and pulse of 82. GENERAL: The patient is alert and oriented x1 to 2. No acute distress. HEENT: Head is normocephalic and atraumatic. Extraocular movements are intact. Oral mucosa is slig htly noted with secretions. NECK: Supple. HEART: Slightly irregular. No murmurs auscultated. LUNGS: Clear to auscultation bilaterally. ABDOMEN: Soft and nontender, positive bowel sounds throughout. EXTREMITIES: Lower extremities without cyanosis or edema. LABORATORY WORK: White blood cell count of 3.7, hemoglobin of 8.9 and platelet count of 110. Sodium of 139, potassium of 4.9, CO2 of 28, BUN of 80, creatinine of 5.866, glucose of 104. Cultures curre ntly negative at 40 hours. Coagulase negative Staph contaminant x1, left, blood culture. ASSESSMENT AND PLAN: Acute on chronic respiratory failure secondary to end-stage chronic obstructive pulmonary disease and possible pneumonia. The patient successfully extubated, will likely remain in the ICU today, monitoring post-extubation. Chronic kidney disease stage 4, currently stable. Irreg ular heartbeat, PACs present on rhythm strips. No atrial fibrillation present on review. The patien t remains on steroids, breathing treatments, and IV antibiotics. The patient has been continued on h ome medications at this point in time, transition to orals. Regarding his blood pressure, will check out with Dr. Moses Cisneros for tomorrow.
[2017-07-25] MEDS ORDERED: Epoetin (ESRD) 20,000 UNITS/ML SC SCH (17:15)
[2017-07-25] MEDS: Albumin 25% 25 GM/100 ML BOT IVPB SCH (18:04)
--- NOTE | 2017-07-25 20:35 | CON ---
DATE OF CONSULTATION: 07/25/2017 HISTORY OF PRESENT ILLNESS: Mr. De La Rosa is an 81-year-old black male with history of chronic renal brissa lure and was admitted for shortness of breath. He was found to be in acute respiratory distress and he was subsequently intubated and placed on ventilator support. Over the last few days, he has been extubated where now being consulted for his acute kidney injury on top of his chronic renal failure. At one time, palliative care was offered to this patient and he declined. The family was going to g o to palliative care. This afternoon, the patient is feeling better. His breathing is much improved . His potassium was noted to be at 5.9 with a creatinine has been stable for the last 3 days. It is averaging about 5.5. REVIEW OF SYSTEMS: No chest pain. Positive for chronic shortness of breath, no nausea, no vomiting, no productive cough, no fever or chills, no syncopal episode, no diarrhea, no gross hematuria, no dy suria, no urinary frequency, no abdominal pain, no sore throat. MEDICATIONS: DuoNeb q.6 as needed, Catapres 0.1 mg b.i.d. p.r.n., Plavix 75 mg once a day, Lovenox 3 0 mg subcu daily, hydralazine 75 mg p.o. t.i.d., Toprol-XL 100 mg every day, Procardia 60 mg XL tab q . day, prednisone 40 mg q.a.m. PAST MEDICAL HISTORY: 1. Status post acute respiratory failure necessitating intubation: 2. COPD. 3. Hypertension. 4. Chronic renal failure from hypertensive nephropathy. The patient has history of restrictive lung disease. 5. Coronary artery disease. 6. BPH. 7. Hyperlipidemia. 8. Status post pneumonia. PAST SURGICAL HISTORY: 1. Status post colonoscopy. 2. Status post intubation. 3. Status post cardiac catheterization. 4. Status post coronary stent placement. SOCIAL HISTORY: Recently admitted at senior living facility, but he used to live alone. He is sin gle. No children. Smoked for 60 years, one pack a day, currently minimal cigarette. Alcohol: None . Drug abuse. Education 7th grade. 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 No blood transfusion. FAMILY HISTORY: Positive family history of ESRD. ALLERGIES: None. TRAUMA: None. IMMUNIZATIONS: Up to date. HOSPITALIZATIONS: Please see past medical history. PHYSICAL EXAMINATION: VITAL SIGNS: Blood pressure 164/71, heart rate 71, respiratory 23, pulse ox 99%. GENERAL: Awake, supine, comfortable, not in overt distress. SKIN: Adequate turgor. HEENT: He has slightly pale conjunctivae, anicteric sclerae. NECK: No neck mass, no carotid bruits, no JVD. CHEST: No deformities. LUNGS: Decreased breath sounds, no wheezing, no crackles. HEART: Normal sinus rhythm. No murmur, no gallops, no rubs. ABDOMEN: Globular, soft, nontender, no masses. EXTREMITIES: No edema, no deformities. LABORATORY DATA: 07/25/2017, white count 3.2, hemoglobin 9.8. Sodium 139, potassium 5.9, chloride 1 04, carbon dioxide 28, BUN 87, creatinine 5.59, GFR 12 mL per minute, glucose 74, calcium 8.6. 07/21, chest x-ray shows small effusion, atelectatic changes. ASSESSMENT AND PLAN: 1. Acute kidney injury on top of his chronic renal failure - he has underlying hypertensive nephropa thy. The acute kidney injury is most likely hemodynamically mediated. My plan is to start salt poor albumin 25 grams IV q.6 for the next 3 days. I do not see an indication for any emergent hemodialys is this patient. I also feel strongly that this patient is a poor dialysis candidate due to his mult iple medical problems including to his near end stage lung disease. 2. Hyperkalemia - continue to observe. Consider low potassium diet. No indication for emergent matteo lysis. 3. Acute kidney injury - As previously mentioned, start salt poor albumin 25 grams IV q.6 h for 3 da ys. 4. Anemia. Start Epogen 7500 units subcu week. 5. Chronic obstructive pulmonary disease - supportive care. Currently on prednisone. Continue neb treatment.
[2017-07-25] MEDS: Enoxaparin Sodium 30 MG/0.3 ML SYRINGE SC SCH (21:26)
[2017-07-25] MEDS: NIFEdipine XL 60 MG TAB PO SCH (21:27)
[2017-07-26] MEDS: Albumin 25% 25 GM/100 ML BOT IVPB SCH ×5 (00:38→23:30)
[2017-07-26 04:22] LABS: #Lymphocytes 0.3 thou/uL (1.20-3.40); #Monocytes 0.4 thou/uL (0.11-0.59); #Neutrophils 2.4 thou/uL (1.40-6.50); %Eosinophils 0.2 % (0.0-10.0); %Lymphocytes 10.5 % (21.0-51.0); %Monocytes 11.9 % (0.0-10.0); %Neutrophils 77.4 % (42.0-75.0); Hemoglobin 9.6 g/dL (14.0-18.0); Mean Corpuscular Hemoglobin 33.6 pg (27.0-31.0); Mean Platelet Volume 7.7 fL (7.4-10.4); Platelet Count 124 thou/uL (130-400); RBC Distribution Width 11.7 % (11.5-14.5); Red Blood Cell (RBC) Count 2.87 mill/uL (4.70-6.10); White Blood Cell (WBC) Count 3.1 thou/uL (4.8-10.8)
[2017-07-26 04:36] LABS: Anion Gap 11 mmol/L (10-20); BUN (Urea Nitrogen) 88 mg/dL (8.4-25.7); Calc. Creatinine Clearance 10 mL/min (70-130); Calcium 8.6 mg/dL (7.8-10.44); Carbon Dioxide 29 mmol/L (23-31); Chloride 105 mmol/L (98-107); Estimated GFR-MDRD 12; Glucose 67 mg/dL (83-110); Potassium 4.5 mmol/L (3.5-5.1); Sodium 140 mmol/L (136-145)
[2017-07-26 05:08] VITALS: BMI 83.5
[2017-07-26] MEDS: Clopidogrel Bisulfate 75 MG TAB PO SCH (08:36)
[2017-07-26] MEDS: hydrALAZINE 25 MG TAB PO SCH ×3 (08:36→20:28)
[2017-07-26] MEDS: predniSONE 20 MG TAB PO SCH (08:37)
--- NOTE | 2017-07-26 08:47 | PRG ---
DATE OF SERVICE: 07/26/2017 SUBJECTIVE: The patient is doing well. He is breathing easily on 2 liters of O2. He is now ready t o be transferred to the floor. OBJECTIVE: VITAL SIGNS: Temperature 98.1, pulse 81, respirations 22, pulse ox 92 on 1 liter, blood pressure 185 /81. HEART: Regular rate and rhythm. LUNGS: Clear, shallow. ABDOMEN: Soft. EXTREMITIES: No edema. LABORATORY: White count 3.1, H&H 9.6 and 29.3. Electrolytes normal. Creatinine 5.52, BUN 88, blood sugar 74 and 67. ASSESSMENT: 1. Acute on chronic hypoxic and hypercapnic respiratory failure. 2. Chronic obstructive pulmonary disease exacerbation. 3. Severe deconditioning. 4. Hypertension. 5. Acute on chronic kidney disease stage 4. 6. Hyperlipidemia. 7. Long tobacco history. 8. Coronary artery disease. 9. Benign prostatic hypertrophy. PLAN: 1. Continue breathing treatments and antibiotics. 2. Continue to monitor electrolytes and kidney functions. 3. Full code. 4. Physical therapy. 5. I had a long talk with Erum, the sister, at [phone]. SEVERAL FAMILY DESIRES: 1. The plan is to discharge the patient to home when ready. He will be under the care of his nephew that will be living with him. 2. He will remain a full code. 3. Family has made a decision not to perform dialysis if needed. 4. Family also expressed their desire that they do not want him to at home. If he did become se verely ill, then they were for him to in the hospital under the care of hospice. We will continue to follow and the patient will be transferred to the floor.
--- NOTE | 2017-07-26 09:17 | PRG ---
DATE OF SERVICE: 07/26/2017 SERVICE: Pulmonary Medicine INTERVAL HISTORY: The patient is doing fine from a respiratory standpoint. He is breathing comforta patience. He has no chest discomfort, nausea, vomiting or shortness of breath. Otherwise, does not appea r to be septic and is breathing comfortably. PHYSICAL EXAMINATION: VITAL SIGNS: Afebrile, pulse 94, blood pressure 185/81, respirations 23, saturation 95% on 2 liters nasal cannula. GENERAL: The patient is awake, alert, in no apparent distress. LUNGS: Decent air entry. There is a prolonged expiratory phase. I do not hear any crackles or whee zing. HEART: Normal rate, regular. ABDOMEN: Soft, nontender, nondistended. Bowel sounds are positive. MUSCULOSKELETAL: No cyanosis or clubbing. There is no pitting in the bilateral lower extremities. NEUROLOGIC: Grossly nonfocal. LABORATORY DATA: WBC 3.1, hemoglobin 9.6, platelets 124,000. Creatinine 5.52 and gently down trendi ng, BUN 88. Basic metabolic profile is otherwise unremarkable. Urine culture and blood culture is n egative. There is one blood culture growing coag negative staph. ASSESSMENT: 1. Acute on chronic hypoxic and hypercapnic respiratory failure. 2. Chronic obstructive pulmonary disease with acute exacerbation. 3. Severe protein calorie malnutrition. 4. Acute kidney injury on chronic kidney disease IV. 5. Severe deconditioning. DISCUSSION AND PLAN: The patient is doing fine from a respiratory standpoint. We will wean oxygen a s tolerated. He will be continued on his antibiotics, nebulized medications, and steroids as previou kavon detailed. From my perspective, he remains stable for transition out of the ICU to the medical it. Pulmonary Critical Care will continue to follow. Parisi catheter to be removed today.
--- NOTE | 2017-07-26 11:25 | PRG ---
DATE OF SERVICE: 07/26/2017 RENAL MEDICINE SUBJECTIVE: Mr. De La Rosa is an 81-year-old black male with known history of chronic renal failure from hypertensive nephropathy and was admitted to mental status change, COPD exacerbation and was in acute respiratory failure. He is now extubated and doing well. I had a discussion with him about dialysi s. I feel that he may not be a candidate, but I did tell him that. He would like to think whether olivia castro wants to pursue dialysis. I told him to discuss this with his family. He is feeling better this m orning. I did start him on some salt poor albumin to see if I could equilibrate or improve his renal function. No other complaints today. PHYSICAL EXAMINATION: VITAL SIGNS: Blood pressure is 186/77, heart rate 92, respiratory rate 22, pulse ox 92%. GENERAL: Awake, sitting comfortable, not in distress. SKIN: Adequate turgor. HEENT: He has slightly pale conjunctivae, anicteric sclerae. NECK: No neck mass, no carotid bruits, no JVD. CHEST: No deformities. LUNGS: Decreased breath sounds, no wheezing, no crackles. HEART: Normal sinus rhythm. No murmurs, no gallops, no rubs. ABDOMEN: Globular, soft, nontender, no masses. EXTREMITIES: No edema, no deformities. MEDICATIONS: Medications of 07/26/2017 reviewed. LABORATORY DATA: Laboratories of 07/26/2017; white count 3.1, hemoglobin 9.6. Sodium 140, potassium 4.5, chloride 105, carbon dioxide 29, BUN 88, creatinine 5.52, GFR 12 mL per minute. Calcium 8.6. ASSESSMENT AND PLAN: 1. Chronic renal failure from hypertensive nephropathy, currently at stage 5 chronic renal failure. Due to the patient's comorbid problems, he is not a good dialysis candidate. A discussion was made. The patient is to think about dialysis in the near future. I advised him to discuss it with his jennyfer parra. For the moment, agree with current management. There is no indication for any acute dialytic intervention. 2. Shortness of breath - secondary to chronic obstructive pulmonary disease exacerbation, clinically improved. 3. Anemia, on weekly Epogen. 4. Overall, agree with current management. Recheck basic metabolic panel and CBC.
[2017-07-26] MEDS: Enoxaparin Sodium 30 MG/0.3 ML SYRINGE SC SCH (20:27)
[2017-07-26] MEDS: NIFEdipine XL 60 MG TAB PO SCH (20:30)
[2017-07-27] MEDS: Albumin 25% 25 GM/100 ML BOT IVPB SCH ×2 (05:14→11:54)
--- NOTE | 2017-07-27 08:17 | PRG ---
DATE OF SERVICE: 07/27/2017 SUBJECTIVE: The patient continues to do well from a respiratory standpoint. No complaints of shortn ess of breath. Minimally active. Still has physical therapy. OBJECTIVE: VITAL SIGNS: Temperature 97.6, pulse 82, respirations 20, pulse ox 98 on 2 liters, blood pressure 16 5/78. HEART: Regular rate and rhythm. LUNGS: Clear. ABDOMEN: Soft. EXTREMITIES: With no edema. LABORATORY DATA: None. ASSESSMENT: 1. Acute on chronic hypoxic and hypercapnic respiratory failure. 2. Chronic obstructive pulmonary disease exacerbation, improving. 3. Severe deconditioning. 4. Acute on chronic kidney disease stage V. 5. Hypertension. 6. Hyperlipidemia. 7. Long tobacco history. 8. Coronary artery disease. 9. Benign prostatic hypertrophy. PLAN: 1. See family desires in the previous note. 2. Complete 3 days of IV albumin. 3. Continue physical therapy. 4. Hopefully, if okay with Dr. Khan, can be discharged home in the next 1-2 days.
[2017-07-27] MEDS: predniSONE 20 MG TAB PO SCH (08:40)
[2017-07-27] MEDS: Clopidogrel Bisulfate 75 MG TAB PO SCH (08:40)
[2017-07-27] MEDS: hydrALAZINE 25 MG TAB PO SCH ×3 (08:43→21:36)
--- NOTE | 2017-07-27 09:37 | PRG ---
DATE OF SERVICE: 07/27/2017 SUBJECTIVE: Mr. De La Rosa is an 81-year-old black male with known history of chronic renal failure. He was admitted for shortness of breath secondary to chronic obstructive pulmonary disease exacerbation. I had a discussion regarding eventual dialysis with him. After a long discussion with his family a nd his own personal decision, he said he was not interested in pursuing any dialysis in the future or near future. This morning he is feeling better. He denies any worsening shortness of breath. PHYSICAL EXAMINATION: VITAL SIGNS: Blood pressure is 175/76, heart rate 85, respiratory rate 16, temperature 98.7, pulse o x 98%. GENERAL: Awake, alert, comfortable, not in distress. SKIN: Adequate turgor. HEENT: Slightly pale conjunctivae, anicteric sclerae. NECK: No neck mass, no carotid bruits, no JVD. CHEST: No deformities. LUNGS: Decreased breath sounds, occasional wheezing. HEART: Normal sinus rhythm. No murmur, no gallops or rubs. ABDOMEN: Globular, soft, nontender, no masses. EXTREMITIES: No edema. MEDICATIONS: 07/27/2017 - Reviewed. LABORATORY: 07/26/2017 - White count 3.1, hemoglobin 9.6, sodium 140, potassium 4.5, chloride 105, c arbon dioxide 29, BUN 88, creatinine 5.52. ASSESSMENT AND PLAN: Acute kidney injury on top of his chronic renal failure, last creatinine noted at 5.52. He is currently at stage 5 chronic renal failure. After a long discussion with the patient , he states that he is not interested in pursuing hemodialysis. I agree with this decision by the susan alamo. I feel that he has severe comorbid problems to undergo hemodialysis. Consider palliative care with this patient. We will be signing off. Please recall if needed.
--- NOTE | 2017-07-27 12:52 | PRG ---
DATE OF SERVICE: 07/27/2017 SERVICE: Pulmonary Medicine INTERVAL HISTORY: The patient is breathing comfortably today. He denies any shortness of breath or chest discomfort. His strength and mentation have improved a little bit. He remains at touch slow. Otherwise, there has been no interval change to his condition. He has yet to get out of bed. PHYSICAL EXAMINATION: VITAL SIGNS: Afebrile, pulse 84, blood pressure 154/70, respirations 18, saturation 95% on 2 liters nasal cannula. GENERAL: The patient is awake, alert, no apparent distress. LUNGS: Decent air entry. He does not have any accessory muscle use today. There is prolonged expir atory phase. No crackles or wheezing appreciated. HEART: Normal rate, regular. ABDOMEN: Soft, nontender, nondistended. Bowel sounds are positive. MUSCULOSKELETAL: No cyanosis or clubbing. There is no pitting in the bilateral lower extremities. NEUROLOGIC: Grossly nonfocal. ASSESSMENT: 1. Acute on chronic hypoxic and hypercapnic respiratory failure. 2. Chronic obstructive pulmonary disease with acute exacerbation. 3. Severe protein calorie malnutrition. 4. Acute kidney injury on chronic kidney disease 4. 5. Severe deconditioning. DISCUSSION AND PLAN: From my perspective, the patient is stable for transition out of the hospital. We will continue his nebulized medications, steroids, antibiotics for the time being. He will work with physical therapy and try to move to a chair. Hopefully, he will be ready for transition out of the hospital in 1-2 days, but I will continue to follow while he remains in this location. If he ret urns to the hospital with recurrent episodes of volume mediated respiratory issues, we should strongl y consider transitioning over comfort care as he does not want to pursue dialysis in the outpatient s etting.
[2017-07-27] MEDS: Enoxaparin Sodium 30 MG/0.3 ML SYRINGE SC SCH (21:36)
[2017-07-27] MEDS: NIFEdipine XL 60 MG TAB PO SCH (21:38)
[2017-07-28 07:57] LABS: #Lymphocytes 0.4 thou/uL (1.20-3.40); #Monocytes 0.4 thou/uL (0.11-0.59); #Neutrophils 2.2 thou/uL (1.40-6.50); %Eosinophils 0.1 % (0.0-10.0); %Lymphocytes 13.2 % (21.0-51.0); %Neutrophils 72.7 % (42.0-75.0); Hemoglobin 8.9 g/dL (14.0-18.0); Mean Corpuscular HGB CONC 31.9 g/dL (32.0-36.0); Mean Platelet Volume 7.8 fL (7.4-10.4); Platelet Count 124 thou/uL (130-400); Red Blood Cell (RBC) Count 2.68 mill/uL (4.70-6.10)
[2017-07-28 08:07] LABS: Anion Gap 12 mmol/L (10-20); BUN (Urea Nitrogen) 74 mg/dL (8.4-25.7); Calc. Creatinine Clearance 11 mL/min (70-130); Calcium 8.4 mg/dL (7.8-10.44); Carbon Dioxide 26 mmol/L (23-31); Chloride 106 mmol/L (98-107); Estimated GFR-MDRD 13; Glucose 98 mg/dL (83-110); Potassium 4.1 mmol/L (3.5-5.1); Sodium 140 mmol/L (136-145)
--- NOTE | 2017-07-28 09:18 | DIS ---
DATE OF ADMISSION: 07/21/2017 DATE OF DISCHARGE: 07/28/2017 DISCHARGE DIAGNOSES: 1. Acute on chronic hypoxic and hypercapnic respiratory failure. 2. Chronic obstructive pulmonary disease exacerbation. 3. Severe deconditioning. 4. Acute on chronic kidney disease stage 5. 5. Hypertension. 6. Hyperlipidemia. 7. Long tobacco history. 8. Coronary artery disease. 9. Benign prostatic hypertrophy. SPECIAL INSTRUCTIONS: 1. Full code. 2. Patient will be discharged under the care of his nephew, Curly, phone number [phone]. 3. The patient has made a decision that there will be no dialysis. 4. Family also expressed desire that they do not want him to at home. If he does become worse, they will return to the hospital and institute hospice care. BRIEF HISTORY: This is an 81-year-old black male who was brought to the emergency room for shortness of breath. Evidently, his oxygen ran out and the family did not notice. He was without oxygen for up to 8-24 hours. He was brought to the hospital severely hypercapnic and was started on BiPAP and r esponded quickly. However, he did decompensate upon stabilization and require a short intubation. HOSPITAL COURSE: The patient was intubated; however, he self extubated himself. However, he was fredi athing okay and he did not require reintubation. He received oxygen therapy. He received breathing treatments as well as antibiotics. He did well over several days. 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 The family decided not to do dialysis as well as the patient. Long discussions with the family. They do realize he has end-stage lung disease. They are very uncomfortable with him dying at home. They plan to follow up in the hospital if he deteriorates again. They will at that time co nsider hospice care. Dr. Khan was consulted as well as Dr. Moulton. The patient at this time is doin g well, stable, O2 sats greater than 94% on 2-1/2 liters oxygen. He will follow up in the office in one week. LABORATORY DATA: White count is 3.1, hemoglobin and hematocrit was 9.6 and 29.3. Electrolytes prasanna l. Creatinine 5.52, BUN 88. The patient also has been instructed to continue his iron twice a day.
[2017-07-28] MEDS: Clopidogrel Bisulfate 75 MG TAB PO SCH (09:35)
[2017-07-28] MEDS: predniSONE 20 MG TAB PO SCH (09:35)
[2017-07-28] MEDS: hydrALAZINE 25 MG TAB PO SCH ×2 (09:35→14:06)
[2017-07-28 11:53] VITALS: TEMP 98.9
[2017-07-28 14:07] VITALS: BP 159/75
--- NOTE | 2017-08-03 15:17 | EKG ---
Test Reason : Blood Pressure : / mmHG Vent. Rate : 065 BPM Atrial Rate : 065 BPM P-R Int : 130 ms QRS Dur : 076 ms QT Int : 414 ms P-R-T Axes : 084 -08 088 degrees QTc Int : 430 ms Sinus rhythm with marked sinus arrhythmia Confirmed by MILY PEARL [id number]), order editor CRYSTAL CALVO ([id number] on 08/03/2017 3:17:20 PM Referred By: Confirmed By:MILY PEARL
== END 2017-07-28 14:34 | disposition home or self-care (01) | DRG 208 ==
LOC: ERS 10:42 → CCU 13:50 → T4-A 07-26 10:30
PROVIDERS: ADMIT Family Medicine; ATTEND Family Medicine
PROC: 5A1945Z Respiratory Ventilation, 24-96 Consecutive Hours (ICD-10-PCS; principal; 2017-07-21)
PROC: 0BH17EZ Insertion of Endotracheal Airway into Trachea, Via Natural or Artificial Opening (ICD-10-PCS; 2017-07-21)
DX: J96.21 Acute and chronic respiratory failure with hypoxia (principal); E43 Unspecified severe protein-calorie malnutrition; N17.9 Acute kidney failure, unspecified; J44.1 Chronic obstructive pulmonary disease with (acute) exacerbation; I12.0 Hypertensive chronic kidney disease with stage 5 chronic kidney disease or end stage renal disease; N18.5 Chronic kidney disease, stage 5; Z68.1 Body mass index [BMI] 19.9 or less, adult; Z99.81 Dependence on supplemental oxygen; J96.02 Acute respiratory failure with hypercapnia; E78.5 Hyperlipidemia, unspecified; E87.5 Hyperkalemia; I25.10 Atherosclerotic heart disease of native coronary artery without angina pectoris; D64.9 Anemia, unspecified; N40.0 Benign prostatic hyperplasia without lower urinary tract symptoms; F17.210 Nicotine dependence, cigarettes, uncomplicated; Z79.02 Long term (current) use of antithrombotics/antiplatelets; Z79.82 Long term (current) use of aspirin; Z79.899 Other long term (current) drug therapy
CPT/HCPCS: 31500; 36415; 36416; 51701; 71045; 80048; 80053; 81003; 81015; 82553; 82805; 83605; 83690; 83735; 83880; 84100; 84484; 85025; 87040; 87086; 87149; 93005; 94002; 94003; 94640; 94644; 94660; 94760; 96361; 96374; 96375; G8978-GP-CK; G8979-GP-CI; G8996-GN-CL; G8997-GN-CJ; G8997-GN-CL; J0696; J1650; J1940; J1956; J2060; J2250; J2704; J2920; J2930; J3010; J3370; J7050; J7506; J7611; J7620; P9047; Q4081